=== PATIENT | male | born 1945 | race Caucasian/White ===

== ENCOUNTER → 2017-08-26 16:03 | Outpatient (CLI) | payer MEDICARE, OTHER, SELFPAY ==
[2017-08-26 19:25] LABS: Prostate Specific Antigen 0.747 ng/mL (0.10-4.00)
== END ==
PROVIDERS: PCP Family Medicine; Visit Provider Radiology Radiation Oncology
DX: Z85.46 Personal history of malignant neoplasm of prostate (principal)
CPT/HCPCS: 36415; 84153

== ENCOUNTER → 2017-11-27 12:56 | Outpatient (CLI) | payer MEDICARE, OTHER, SELFPAY ==
[2017-11-27 14:59] LABS: Prostate Specific Antigen 0.932 ng/mL (0.10-4.00)
== END ==
PROVIDERS: Family Provider Family Medicine; PCP Family Medicine; Visit Provider Radiology Radiation Oncology
DX: Z85.46 Personal history of malignant neoplasm of prostate (principal)
CPT/HCPCS: 36415; 84153

== ENCOUNTER → 2018-02-10 08:48 | Outpatient (CLI) | payer MEDICARE, OTHER, SELFPAY ==
[2018-02-10 14:12] LABS: Prostate Specific Antigen 0.841 ng/mL (0.10-4.00)
== END ==
PROVIDERS: Family Provider Family Medicine; PCP Family Medicine; Visit Provider Radiology Radiation Oncology
DX: Z85.46 Personal history of malignant neoplasm of prostate (principal)
CPT/HCPCS: 36415; 84153

== ENCOUNTER → 2018-06-25 12:40 | Outpatient (CLI) | payer MEDICARE, OTHER, SELFPAY ==
[2018-06-25 13:17] LABS: Add Manual Diff / Slide Review NO; Basophils Absolute Auto 100 /uL (0-100); Eosinophils Absolute Auto 300 /uL (0-450); Eosinophils Percent Auto 5.4 % (2-4); Hematocrit 40.4 % (41-53); Hemoglobin 13.8 g/dL (13.5-17.5); Lymphocytes Absolute Auto 1600 /uL (1100-4500); Lymphocytes Percent Auto 30.9 % (25-40); Mean Corpuscular HGB Conc 34.2 % (30-36); Mean Corpuscular Hemoglobin 31.6 PG (26-34); Mean Corpuscular Volume 92.6 fL (80-100); Monocytes Absolute Auto 400 /uL (0-900); Monocytes Percent Auto 7.3 % (3-14); Neutrophils Absolute Auto 2900 /uL (1500-7000); Neutrophils Percent Auto 55.4 % (50-75); Platelet Count 206 X10^3/uL (150-400); Red Blood Cell Count 4.36 X10^6/uL (4.5-5.9); Red Cell Distribution Width 13.5 % (11.6-14.8); White Blood Cell Count 5.2 X10^3/uL (4.5-11.0)
[2018-06-25 14:04] LABS: Alanine Aminotransferase 19 IU/L (21-72); Albumin 4.1 g/dL (3.5-5.0); Albumin Globulin Ratio 1.5 (1.0-2.8); Alkaline Phosphatase 51 U/L (38-126); Aspartate Aminotransferase 24 IU/L (17-59); BUN Creatinine Ratio 28.9 (6-22); Bilirubin Total 0.4 mg/dL (0.2-1.3); Blood Urea Nitrogen 26 mg/dL (9-20); Calcium 9.3 mg/dL (8.4-10.2); Carbon Dioxide 27 mmol/L (22-32); Chloride 106 mmol/L (98-107); Estimated Glomerular Filt Rate > 60.0 mL/min (>60); Globulin 2.7 g/dL (1.7-4.1); Glucose 85 mg/dL (80-110); HEMOLYSIS < 15 (0-50); Potassium 4.1 mmol/L (3.4-5.1); Sodium 141 mmol/L (137-145); Total Protein 6.8 g/dL (6.3-8.2)
[2018-06-25 14:35] LABS: Prostate Specific Antigen 1.06 ng/mL (0.10-4.00)
== END ==
PROVIDERS: PCP Family Medicine; Visit Provider Internal Medicine Hematology & Oncology
DX: R97.21 Rising PSA following treatment for malignant neoplasm of prostate (principal)
CPT/HCPCS: 36415; 80053; 84153; 85025

== ENCOUNTER → 2018-07-28 12:28 | Outpatient (CLI) | payer MEDICARE, OTHER, SELFPAY | PROVIDERS: PCP Family Medicine; Visit Provider Internal Medicine Hematology & Oncology | DX: R97.21 Rising PSA following treatment for malignant neoplasm of prostate (principal) | CPT/HCPCS: 77080; 77081 ==

== ENCOUNTER → 2018-08-12 08:37 | Outpatient (CLI) | payer MEDICARE, OTHER, SELFPAY ==
[2018-08-12 10:47] LABS: Prostate Specific Antigen 1.15 ng/mL (0.10-4.00)
== END ==
PROVIDERS: PCP Family Medicine; Visit Provider Internal Medicine Hematology & Oncology
DX: R97.21 Rising PSA following treatment for malignant neoplasm of prostate (principal)
CPT/HCPCS: 36415; 84153

== ENCOUNTER → 2018-12-10 16:37 | Outpatient (CLI) | payer MEDICARE, OTHER, SELFPAY | PROVIDERS: PCP Family Medicine | DX: Z23 Encounter for immunization (principal) | CPT/HCPCS: 90471; 90662 ==

== ENCOUNTER → 2019-02-09 07:46 | Outpatient (CLI) | payer MEDICARE, OTHER, SELFPAY ==
[2019-02-09 08:39] LABS: Alanine Aminotransferase 14 IU/L (<50); Albumin Globulin Ratio 1.5 (1.0-2.8); Alkaline Phosphatase 61 U/L (38-126); Aspartate Aminotransferase 23 IU/L (17-59); BUN Creatinine Ratio 19.1 (6-22); Bilirubin Total 0.7 mg/dL (0.2-1.3); Blood Urea Nitrogen 21 mg/dL (9-20); Calcium 9.3 mg/dL (8.4-10.2); Carbon Dioxide 28 mmol/L (22-32); Chloride 106 mmol/L (98-107); Estimated Glomerular Filt Rate > 60.0 mL/min (>60); Globulin 2.7 g/dL (1.7-4.1); Glucose 73 mg/dL (80-110); HEMOLYSIS < 15 (0-50); Potassium 3.9 mmol/L (3.4-5.1); Sodium 141 mmol/L (137-145); Total Protein 6.7 g/dL (6.3-8.2)
[2019-02-09 08:43] LABS: HEMOLYSIS < 15 (0-50); Iron 59 ug/dL (49-181)
[2019-02-09 08:54] LABS: Percent Iron Saturation 23 % (20-50); Total Iron Binding Capacity 260 ug/dL (261-462); Transferrin 202 mg/dL (206-381)
[2019-02-09 09:13] LABS: Ferritin 90.8 ng/mL (17.9-464)
[2019-02-09 09:14] LABS: TSH w/ Reflex to FT4 5.44 uIU/mL (0.47-4.68)
[2019-02-09 09:26] LABS: Vitamin B12 278 pg/mL (239-931)
== END ==
PROVIDERS: PCP Family Medicine; Visit Provider Internal Medicine Hematology & Oncology
DX: R97.21 Rising PSA following treatment for malignant neoplasm of prostate (principal)
CPT/HCPCS: 36415; 80053; 82607; 82728; 83540; 83550; 84439; 84443

== ENCOUNTER → 2020-03-09 08:59 | Outpatient (CLI) | payer MEDICARE, OTHER, SELFPAY ==
[2020-03-09] MEDS: COVID-19 VACC(MODERNA-1)/PF 100 MCG/0.5 ML VIAL IM (09:09)
== END ==
PROVIDERS: PCP Family Medicine; Visit Provider Internal Medicine
DX: Z23 Encounter for immunization (principal)
CPT/HCPCS: 0011A; 91301

== ENCOUNTER → 2020-04-05 12:13 | Outpatient (CLI) | payer MEDICARE, OTHER, SELFPAY ==
[2020-04-05] MEDS: COVID-19 VACC #2, MRNA(MOD) 100 MCG/0.5 ML VIAL IM (12:21)
== END ==
PROVIDERS: PCP Family Medicine; Visit Provider Internal Medicine
DX: Z23 Encounter for immunization (principal)
CPT/HCPCS: 0012A; 91301

== ENCOUNTER → 2021-04-17 08:54 | Outpatient (CLI) | payer MEDICARE, OTHER, SELFPAY | PROVIDERS: PCP Family Medicine; Referring Provider Urology; Visit Provider Family Medicine | DX: N30.41 Irradiation cystitis with hematuria (principal); Z85.46 Personal history of malignant neoplasm of prostate; Z92.3 Personal history of irradiation; Z79.818 Long term (current) use of other agents affecting estrogen receptors and estrogen levels; Z79.52 Long term (current) use of systemic steroids | CPT/HCPCS: 99204; 99212 ==

== ENCOUNTER → 2022-10-28 | Outpatient (CLI) | payer MEDICARE, OTHER, SELFPAY ==
--- NOTE | 2022-10-28 13:36 | DI.ECHO.S_ITS ---
[facility]---------+ [facility] +---------+ : : [address] : [address] [place] : : : : [id number] : : : : Phone: [phone]+ Echocardiogram Report + + :Name: ULISES FRAIRE Study Date: 10/28/2022 Height: 70 in : :[facility] ReadingLocation: Weight: 143 lb : : Gender: Male BSA: 1.8 m2 : :: 1945 Age: 77 yrs BP: 109/76 mmHg: :Reason For Study: DYSPNEA : :Ordering Physician: JEANNIE, : :HIMA Performed By: Maria Guadalupe Anderson : :Referring: HIMA TREVIÑO : + + Interpretation Summary 1) Normal left ventricular thickness and size with low normal systolic function (EF about 50%). 2) Normal right ventricular size and function. 3) No significant valvular abnormalities. 4) The aortic root is moderately dilated at 4.5cm. 5) No prior Echo available for comparison. Procedure: A two-dimensional transthoracic echocardiogram with color flow and Doppler was performed. The study quality was technically adequate. There is no prior echocardiogram noted for this patient. The patient was in sinus rhythm with heart rates between 51-75 bpm during the exam. Left Ventricle: The left ventricle is normal in size and wall thickness. Left ventricular global longitudinal strain average is -18.7%. Left ventricular ejection fraction is estimated to be 50 +/- 5%. There are no focal wall motion abnormalities. Right Ventricle: The right ventricle is normal in size and function. Atria: The left atrial size is normal. Right atrial size is normal. The atrial septum is aneurysmal. There is no Doppler evidence for an interatrial shunt. Mitral Valve: The mitral valve is normal in structure and function. There is trace mitral regurgitation. Aortic Valve: The aortic valve is trileaflet. The aortic valve opens well. There is no aortic valve stenosis. There is trace aortic regurgitation. Tricuspid Valve: The tricuspid valve is normal in structure and function. The right ventricular systolic pressure is estimated to be at least 25 mmHg based on an estimated right atrial pressure of 3 mm Hg. There is a trace or physiologic amount of tricuspid regurgitation. Pulmonic Valve: The pulmonic valve is not well seen, but is grossly normal. There is trace pulmonic regurgitation. Great Vessels: The aortic root is moderately dilated. The ascending aorta is mildly enlarged. The IVC is of normal diameter and collapses greater than 50% with a sniff. This suggests a low right atrial pressure of 3 mm Hg. Pericardium/ Pleura There is no pericardial effusion. There is no pleural effusion. MMode/2D Measurements & Calculations LVIDd: 5.0 cm LVOT diam: 2.2 cm LVIDs: 3.7 cm Ao root diam: 4.5 cm FS: 25.2 % asc Aorta Diam: 4.1 cm EPSS: 0.84 cm Ao Arch Diam (Prox Trans): 3.0 cm IVSd: 0.76 cm LVPWd: 0.77 cm LV . diameter/BSA (cm/m^2): 2.8 LV sys. diameter/BSA (cm/m^2): 2.1 LA A2 area: 18.1 cm2 RA long axis: 6.0 cm LA A4 area: 14.5 cm2 RA area: 15.2 cm2 LA length (vol): 4.5 cm RA vol: 32.7 ml LA vol: 49.6 ml RA : 18.1 ml/m2 LA vol index: 27.4 ml/m2 IVC diam: 1.3 cm RVD1 (basal): 4.0 cm RVD2 (mid): 3.1 cm TAPSE: 1.9 cm Doppler Measurements & Calculations Ao V2 max: 112.7 cm/sec LVOT Max Lane: 88.0 cm/sec Ao V2 mean: 80.3 cm/sec LV V1 max P.1 mmHg Ao max P.1 mmHg LV V1 VTI: 21.8 cm Ao mean P.9 mmHg AIDA(I,D): 3.2 cm2 Ao V2 VTI: 25.7 cm AIDA(V,D): 2.9 cm2 sev ratio: 0.85 AIDA indexed to BSA (cm^2/m^2): 1.[address]: 39.3 cm/sec TR max lane: 230.0 cm/sec MV A max lane: 72.5 cm/sec TR max P.2 mmHg MV E/A: 0.54 PA pr(Accel): 34.5 mmHg Med Peak E' Lane: 4.5 cm/sec E/E' med: 8.[address]: 4.7 cm/sec E/E' lat: 8.3 E/e' average: 8.5 MV dec time: 0.49 sec SV(LVOT): 81.6 ml Reading Physician:09:23 AM
--- NOTE | 2022-10-30 09:59 | DI.NM.S_ITS ---
DATE OF SERVICE: 10/28/2022 PROCEDURE: Exercise treadmill stress test without imaging. ORDERING PROVIDER: Juan Treviño MD INDICATIONS: The patient is a 77-year-old male with a history of exertional palpitations, lightheadedness, and left arm discomfort with a remote history of chest pain. FINDINGS: 1. The patient was able to exercise for 9 minutes and 30 seconds on a standard Suhail protocol, suggesting exceptional exercise capacity with an KELLY of -58%, achieving 10.2 METS. 2. He had a normal heart rate and blood pressure response to exercise, achieving a maximum heart rate of 176 bpm (123% of his predicted maximum). O2 saturation was 94% at peak exercise. 3. The patient had no chest discomfort or other anginal symptoms. 4. His resting ECG showed sinus rhythm with left axis deviation but normal ST segments. With stress, there were no significant ST-segment shifts but frequent PVCs, briefly in a bigeminal pattern and rarely in couplets, but no other complex ventricular ectopy. IMPRESSION: 1. Normal exercise treadmill stress test for ischemia. 2. Exceptional exercise capacity without angina. 3. Moderate ventricular ectopy with exercise with frequent PVCs, briefly in a bigeminal pattern and rarely in couplets but no other complex ventricular ectopy Alexander Duran - YENI/xin/CHARLOTTE doc#: [id number]/job#: [id number] dd: 10/28/2022 17:38:00 dt: 10/29/2022 00:52:00 DICTATING MD/COPIES TO: Shaheen Ching MD; Juan Treviño MD COPIES MNE: SHERRON;
== END ==
PROVIDERS: PCP Family Medicine; Referring Provider Internal Medicine Cardiovascular Disease; Visit Provider Internal Medicine Cardiovascular Disease
DX: I77.810 Thoracic aortic ectasia (principal); I49.3 Ventricular premature depolarization; R06.09 Other forms of dyspnea; R53.83 Other fatigue
CPT/HCPCS: 93017; 93306; 93356

== ENCOUNTER 2023-09-08 21:47 | Inpatient (IN) | payer MEDICARE, OTHER, SELFPAY ==
[2023-09-08] VITALS (7 sets, daily range): BP systolic 104–125; BP diastolic 57–70; PULSE 82–101; RESP 13–17; TEMP 37.7; O2SAT 90–99; BMI 22.9
--- NOTE | 2023-09-08 22:04 | DI.RAD.S_ITS ---
PROCEDURE: XR CHEST 1V INDICATIONS: suspected sepsis TECHNIQUE: One view of the chest was acquired. COMPARISON: None. FINDINGS: Surgical changes and devices: Left chest wall port catheter with distal tip projecting over the lower SVC. Lungs and pleura: No pneumothorax. Left base mild opacity. Blunting of left costophrenic angle may represent trace pleural effusion. Mediastinum: Mediastinal contours appear normal. Heart size is normal. Bones and chest wall: No suspicious bony lesions. Overlying soft tissues appear unremarkable. IMPRESSION: Mild left base opacity may represent atelectasis, aspiration or pneumonia in the appropriate clinical setting. Blunting of the left left costophrenic angle may represent trace pleural effusion. Approved by: Awa Saleem M.D.,Ph.D. on 09/08/2023 at 22:46
[2023-09-08] MEDS: SODIUM CHLORIDE 0.9% 1,000 ML 1000 ML IV (22:16)
[2023-09-08] MEDS: HYDROMORPHONE 0.5 MG INJ IV ×2 (22:21→23:31)
--- NOTE | 2023-09-08 22:43 | ED_ITS ---
HPI - Altered Mental Status General Chief Complaint: Altered Mental Status Stated Complaint: poss uti/has cathetar Time Seen by Provider: 09/08/23 22:27 Source: patient and family Mode of arrival: Wheelchair History of Present Illness HPI narrative: 78-year-old male with history of prostate cancer first diagnosed 2010, initial seeds/XRT, recurrence 2015, chemotherapy through 2019, more recently had radionuclide therapy via [facility] in [place] this June 2023, but unfortunately PSA was rising despite MILLER treatment, followed by oncologist Dr. Andrea, with consideration for experimental K2 treatment, but because of low platelets he was not deemed to be a K2 trial candidate, most recently 08/27/23 he had trial of testosterone, but the next day became hypotensive, airlifted 08/28/[address] from [place] to [facility], felt to be dehydrated, found to have urinary retention, new Fernandez urinary catheter placed prior to discharge home, due to see [facility] urologist Dr. Fu on 09/15/2023. Family notes patient to have increasing fatigue recent days, generalized weakness, yesterday and today requiring assistance with ambulation, usually can ambulate independently, concern for possible urinary tract infection. No injury or trauma or falls known. No gross hematuria noted in the Fernandez tubing/bag, but some cloudy urine has been present. No nausea or vomiting, no black or red stools. He denies abdominal pain, flank pain, chest pain, shortness of breath. He denies headache, neck pain, photophobia. No drug or alcohol use suspected. 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 He lives on [place] with . Related Data Home Medications Medication Instructions Recorded Confirmed abiraterone 250 mg tablet 500 mg PO DAILY 03/27/21 04/11/21 acetaminophen 325 mg tablet 650 mg PO Q6H PRN 03/27/21 04/11/21 cetirizine 10 mg tablet (Zyrtec) 10 mg PO DAILY PRN 03/27/21 04/11/21 diphenhydramine HCl 25 mg tablet 12.5 mg PO BEDTIME 03/27/21 04/11/21 (Benadryl Allergy) leuprolide [Lupron Depot] IM [id number] 03/27/21 04/11/21 naproxen sodium 220 mg capsule 220 mg PO BID PRN 03/27/21 04/11/21 prednisone 5 mg tablet 5 mg PO DAILY 03/27/21 04/11/21 Previous Rx's Medication Instructions Recorded trospium 20 mg tablet 20 mg PO BID #60 tabs 05/01/21 Allergies Allergy/AdvReac Type Severity Reaction Status Date / Time No Known Drug Allergies Allergy Verified 04/11/21 15:09 Review of Systems Review of Systems Narrative: per HPI Patient History Medical History (Updated 09/09/23 @ 00:07 by Myron Vazquez MD) Androgen deprivation therapy History of radiation therapy Frequency of micturition Urinary urgency Nocturia Lower urinary tract symptoms Hx of closed dislocation of shoulder Hx of prostatic malignancy Hx of renal calculi Surgical History Hx of bilateral inguinal hernia repair Hx of prostate biopsy Hx of circumcision Hx of prostatectomy Family History Mother Cancer Sister Cancer Social History marital status: household members: spouse Smoking Status: Never smoker alcohol intake: former caffeine: Yes Type(s) of exercise: bicycling frequency: 1-2 times per week duration: 45-60 minutes/day Smoking Status: Never smoker Exam Narrative Exam Narrative: GENERAL: Well-developed patient, in mild distress. HEAD: Atraumatic. Normocephalic. EYES: Pupils equal round and reactive. Extraocular motions intact. No scleral icterus. No injection or drainage. ENT: Nose without bleeding, purulent drainage. Throat without erythema, tonsillar hypertrophy or exudate. Airway patent. NECK: Trachea midline. Non tender CARDIOVASCULAR: Regular rate and rhythm without murmurs, gallops, or rubs. RESPIRATORY: Clear to auscultation. Breath sounds equal bilaterally. No wheezes, rales, or rhonchi. Left chest Port-A-Cath, site appears normal, without redness or swelling or discharge GASTROINTESTINAL: Abdomen soft, non-tender, nondistended. : Fernandez catheter in place, cloudy urine in tubing, no pink/red color, somewhat cloudy appearing urine in tubing EXTREMITIES: 1+ edema bilateral above ankles, well-perfused feet/toes. BACK: Nontender without deformity or crepitance. No flank tenderness. NEURO: AOx3. SKIN: No rash or erythema of visible areas Initial Vital Signs Initial Vital Signs: Vital Signs Pulse Rate 97 H 09/08/23 21:54 Blood Pressure 117/70 09/08/23 21:54 Pulse Oximetry 91 09/08/23 21:54 Oxygen Delivery Method Room Air 09/08/23 21:54 Course Orders Ordered: ED Orders 09/08/23 22:04 XR chest 1V Stat EKG-12 Lead Stat RT Consult Eval and Treat NOW 09/08/23 22:40 Complete Blood Count AUTO DIFF Stat Comprehensive Metabolic Panel Stat Lactate (Lactic Acid) Stat Lipase Stat NT-proBNP (BNP-Adult 18+) Stat PTT Partial Thromboplastin Brock Stat Pathologist Review (for CBC) Stat Procalcitonin Stat Prothrombin Time INR Stat 09/08/23 23:00 Ictotest Urine Stat Urinalysis and Microscopic Stat Urine Culture Stat 09/08/23 23:16 Blood Culture Stat Platelet Irradiated Stat Platelets Stat Type and Screen Stat transfuse [Packed Cells Irradiated] Stat transfuse [Packed Cells] Stat Ondansetron HCl (Ondansetron 4 Mg/2 Ml Inj) 4 mg IV NOW PRN PRN Reason: Nausea And Vomiting Ondansetron HCl (Ondansetron 4 Mg Odt) 4 mg SL NOW PRN PRN Reason: Nausea And Vomiting Discontinued Medications Hydromorphone HCl (Hydromorphone 0.5 Mg Inj) 0.5 mg IV NOW ONE Stop: 09/08/23 22:11 Last Admin: 09/08/23 22:21 Dose: 0.5 mg Documented By: ANISH Hydromorphone HCl (Hydromorphone 0.5 Mg Inj) 0.5 mg IV NOW ONE Stop: 09/08/23 23:22 Last Admin: 09/08/23 23:31 Dose: 0.5 mg Documented By: DWAYNE Sodium Chloride (Normal Saline 0.9%) 1,000 mls @ 1,000 mls/hr IV BOLUS ONE Stop: 09/08/23 23:03 Last Infusion: 09/09/23 00:19 Dose: Infused Documented By: Admin: 09/08/23 22:16 Dose: 1,000 mls/hr Documented By: ANISH Ceftriaxone Sodium 1,000 mg/ (Sodium Chloride) 100 mls @ 200 mls/hr IV NOW ONE Stop: 09/08/23 22:28 Last Infusion: 09/09/23 00:19 Dose: Infused Documented By: Admin: 09/08/23 23:31 Dose: 200 mls/hr Documented By: DWAYNE Vital Signs Vital signs: Vital Signs - 8 hr 09/08/23 21:54 09/08/23 21:54 09/08/23 22:00 Temperature Pulse Rate 97 H 92 H Respiratory Rate 17 Blood Pressure 117/70 Pulse Oximetry 91 93 Oxygen Delivery Method Room Air Nasal Cannula Oxygen Flow Rate 2 09/08/23 22:00 09/08/23 22:04 09/08/23 22:20 Temperature 99.8 F H Pulse Rate 101 H Respiratory Rate 14 Blood Pressure 104/57 L 104/57 L 113/63 Pulse Oximetry 90 L Oxygen Delivery Method Room Air Oxygen Flow Rate 09/08/23 22:20 09/08/23 22:30 09/08/23 22:30 Temperature Pulse Rate 91 H 91 H Respiratory Rate 17 15 Blood Pressure 114/59 L Pulse Oximetry 97 98 Oxygen Delivery Method Nasal Cannula Oxygen Flow Rate 2 09/08/23 23:00 09/08/23 23:00 09/08/23 23:30 Temperature Pulse Rate 85 Respiratory Rate 14 Blood Pressure 109/62 125/62 Pulse Oximetry 98 Oxygen Delivery Method Nasal Cannula Oxygen Flow Rate 2 09/08/23 23:30 09/09/23 00:00 09/09/23 00:00 Temperature Pulse Rate 82 81 Respiratory Rate 13 12 Blood Pressure 112/68 Pulse Oximetry 99 94 Oxygen Delivery Method Nasal Cannula Nasal Cannula Oxygen Flow Rate 2 2 MDM - Altered Mental Status Lab Data Attestation: I reviewed the patient's lab results. 09/08/23 22:40 09/08/23 22:40 Labs: Lab Results 09/08/23 09/08/23 09/08/23 Range/Units 22:40 23:00 23:16 WBC 2.6 L (4.5-11.0) X10^3/uL RBC 1.66 L (4.5-5.9) X10^6/uL Hgb 5.4 L* (13.5-17.5) g/dL Hct 15.5 L* (41-53) % MCV 93.3 (80-100) fL MCH 32.6 (26-34) PG MCHC 34.9 (30-36) % RDW 16.6 H (11.6-14.8) % Plt Count 11 L* (150-400) X10^3/uL Neut % (Auto) Not Reportable Lymph % (Auto) Not Reportable [place] % (Auto) Not Reportable Eos % (Auto) Not Reportable Baso % (Auto) Not Reportable Lymph # (Auto) Not Reportable [place] # (Auto) Not Reportable Baso # (Auto) Not Reportable Total Counted 100 Seg Neutrophils % 71.0 H (38-70) % Band Neutrophils % 5.0 (3-7) % Lymphocytes % (Manual) 16.0 L (25-45) % Monocytes % (Manual) 6.0 (2-11) % Eosinophils % (Manual) 1.0 L (2-4) % Metamyelocytes % 1.0 H (-0) % Neutrophils # (Manual) 1976 L (6760-2886) /uL Nucleated RBCs 4 H ( - 0) #/Diff Platelet Estimate Decreased on smear RBC Morphology See below Polychromasia 1+ H Anisocytosis 1+ H PT 15.4 H (9.4-12.5) SECONDS INR 1.3 (0.9-1.3) APTT 33 (25.1-36.5) SECONDS Sodium 130 L (137-145) mmol/L Potassium 4.4 (3.4-5.1) mmol/L Chloride 100 (98-107) mmol/L Carbon Dioxide 29 (22-32) mmol/L BUN 21 H (9-20) mg/dL Creatinine 1.10 (0.66-1.25) mg/dL Estimated GFR > 60 (>60) mL/min BUN/Creatinine Ratio 19.1 (6-22) Glucose 125 H (80-110) mg/dL Lactate 1.8 (0.7-2.1) mmol/L Calcium 8.2 L (8.4-10.2) mg/dL Total Bilirubin 0.8 (0.2-1.3) mg/dL AST 66 H (17-59) IU/L ALT 16 (<50) IU/L Alkaline Phosphatase 68 (38-126) U/L NT-Pro-B Natriuret Pep 696 H (<450) pg/mL Total Protein 5.5 L (6.3-8.2) g/dL Albumin 3.1 L (3.5-5.0) g/dL Globulin 2.4 (1.7-4.1) g/dL Albumin/Globulin Ratio 1.3 (1.0-2.8) Lipase 37 (23-300) U/L Procalcitonin 0.395 (<0.5) ng/mL Urine Color Red Urine Appearance Cloudy Urine pH 8.0 (4.5-8.0) Ur Specific [place] 1.015 (1.000-1.035) Urine Protein 3+ H (Negative) Urine Glucose (UA) Negative (Negative) g/dL Urine Ketones Negative (NEGATIVE) Urine Occult Blood 3+ H (Negative) Urine Nitrate Positive H (Negative) Urine Bilirubin 1+ H (NEGATIVE) Ur Bilirubin Confirm Negative (Negative) Urine Urobilinogen 1.0 (0.2) E.U./dL Ur Leukocyte Esterase 2+ H (NEGATIVE) Urine RBC >100/hpf H (0-5/HPF) Urine WBC >100/hpf H (0-5/HPF) Ur Squamous Epith Cells None seen (0-5/HPF) Urine Bacteria Many (>30) H (None) Ur Culture Indicated? Specimen cultured Vol Urine Centrifuged 10ml (spun) Blood Type A Positive Antibody Screen Negative Crossmatch See Detail ECG Data Attestation: I personally reviewed and interpreted this ECG as follows: Interpretation: Normal sinus rhythm with rate 84, no obvious ST segment elevation or depression changes. Wandering baseline precordial leads. MA 168, QRS 74, QTC 441. MDM Narrative Medical decision making narrative: 78-year-old male with history of complex prostate cancer treatment, most recent radionuclide therapy unsuccessful, with increasing PSA, hypotension after testosterone trial 08/27/2023, prompted airlift transfer [place] to [facility], discharge with urinary catheter for urinary retention, awaiting urology follow up. Generalized weakness last few days, needing assistance last couple of days with ambulation, low platelets noted in the past, no signs and symptoms of active bleeding, no falls or trauma known. Possible urosepsis versus other. Labs sent, urinalysis requested, blood cultures requested, IV ceftriaxone after blood and urine cultures. Await lab test results and urinalysis results. Hemoglobin 5.4 noted, platelets [id number]. Type cross transfuse irradiated 2 units packed cells ordered. Transfuse irradiated 2 units platelets ordered. Urinalysis confirms infection with many bacteria inflammatory cells and red cells, urine culture pending. Blood culture sent prior, IV ceftriaxone given empirically prior for suspected urinary tract infection. Case discussed with hospitalist Dr. Arevalo, accepts patient for admission to inpatient Critical Care Time Critical Care Time Total Critical Care Time: 35 Attestation: The high probability of a clinically significant, sudden or life threatening deterioration of the [cardiopulmonary, hematologic,] system(s) required my full and direct attention, intervention and personal management. The aggregate critical care time was [35] minutes. This time is in addition to time spent performing reported procedures but includes the following: [x] Data Review and interpretation [x] Patient assessment and monitoring of vital signs [x] Documentation [x] Medication orders and management Discharge Plan Departure Patient Disposition: Admitted as Observation Clinical Impression: Generalized weakness, Anemia, Thrombocytopenia, Urinary tract infection Admit Date/Time: 09/09/23 00:09 Admit Provider: Lázaro Arevalo
[2023-09-08 22:56] LABS: Mean Corpuscular HGB Conc 34.9 % (30-36); Mean Corpuscular Hemoglobin 32.6 PG (26-34); Mean Corpuscular Volume 93.3 fL (80-100); Red Blood Cell Count 1.66 X10^6/uL (4.5-5.9); Red Cell Distribution Width 16.6 % (11.6-14.8); White Blood Cell Count 2.6 X10^3/uL (4.5-11.0)
[2023-09-08 22:57] LABS: INR 1.3 (0.9-1.3); Prothrombin Time 15.4 SECONDS (9.4-12.5)
[2023-09-08 23:00] LABS: Add Manual Diff / Slide Review YES; PTT Partial Thromboplastin Tim 33 SECONDS (25.1-36.5)
[2023-09-08 23:02] LABS: Lactate (Lactic Acid) 1.8 mmol/L (0.7-2.1)
[2023-09-08 23:03] LABS: Alanine Aminotransferase 16 IU/L (<50); Albumin 3.1 g/dL (3.5-5.0); Albumin Globulin Ratio 1.3 (1.0-2.8); Alkaline Phosphatase 68 U/L (38-126); Aspartate Aminotransferase 66 IU/L (17-59); BUN Creatinine Ratio 19.1 (6-22); Bilirubin Total 0.8 mg/dL (0.2-1.3); Blood Urea Nitrogen 21 mg/dL (9-20); Calcium 8.2 mg/dL (8.4-10.2); Carbon Dioxide 29 mmol/L (22-32); Chloride 100 mmol/L (98-107); Estimated Glomerular Filt Rate > 60 mL/min (>60); Globulin 2.4 g/dL (1.7-4.1); Glucose 125 mg/dL (80-110); HEMOLYSIS < 15 (0-50); Hemoglobin 5.4 g/dL (13.5-17.5); Lipase 37 U/L (23-300); Potassium 4.4 mmol/L (3.4-5.1); Sodium 130 mmol/L (137-145); Total Protein 5.5 g/dL (6.3-8.2)
[2023-09-08 23:04] LABS: Hematocrit 15.5 % (41-53); Platelet Count 11 X10^3/uL (150-400)
[2023-09-08 23:13] LABS: NT-proBNP (BNP-Adult 18+) 696 pg/mL (<450)
[2023-09-08 23:15] LABS: Appearance Urine UA CLOUDY; Bilirubin Urine UA 1+ (NEGATIVE); Color Urine UA RED; Glucose Urine UA NEGATIVE (Negative); Ketones Urine UA NEGATIVE (NEGATIVE); Leukocyte Esterase Urine UA 2+ (NEGATIVE); Nitrite Urine UA POSITIVE (Negative); Occult Blood Urine UA 3+ (Negative); Protein Urine UA 3+ (Negative); Specific Gravity Urine UA 1.015 (1.000-1.035)
[2023-09-08 23:20] LABS: Procalcitonin 0.395 ng/mL (<0.5)
[2023-09-08 23:24] LABS: Neutrophils Absolute Manual 1976 /uL (3000-5900); Nucleated Red Blood Cells 4 #/Diff; Total Cells Counted 100
[2023-09-08 23:25] LABS: Anisocytosis 1+; Platelet Estimate Decreased on smear; Polychromasia 1+
[2023-09-08] MEDS: cefTRIAXone 1,000 MG in SODIUM CHLORIDE 0.9% 100 ML 200 MG IV (23:31)
--- NOTE | 2023-09-08 23:32 | EKG_ITS ---
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
[2023-09-08 23:39] LABS: Bacteria Urine Many (>30); RBC Urine >100/HPF (0-5/HPF); Urine Volume 10mL (spun); WBC Urine >100/HPF (0-5/HPF)
[2023-09-08 23:40] LABS: Culture Indicated Urine Specimen Cultured; Squamous Epithelial Cell Urine None Seen (0-5/HPF)
[2023-09-08 23:48] LABS: Ictotest Urine Negative (Negative)
[2023-09-09] VITALS (24 sets, daily range): BP systolic 100–122; BP diastolic 60–78; PULSE 68–101; RESP 12–18; TEMP 36.6–38.3; O2SAT 94–100; BMI 21.6
--- NOTE | 2023-09-09 01:11 | EKG_ITS ---
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
--- NOTE | 2023-09-09 02:03 | DI.ECHO.S_ITS ---
[facility] : : [address] : [place] : : [id number] : : Phone: [phone] Echocardiogram Report + + :Name: ULISES FRAIRE Study Date: 09/09/2023 Height: 69 in : :Hospital ReadingLocation: Weight: 146 lb : : Gender: Male BSA: 1.8 m2 : :: 1945 Age: 78 yrs BP: 108/65 mmHg: :Reason For Study: CHEST PAIN : :Ordering Physician: RUDOLPH, : :LADARIUS Hernández MD Performed By: Maria Guadalupe Anderson : :Referring: LADARIUS GALDAMEZ MD : + + Interpretation Summary 1) Normal left ventricular thickness and size with low normal systolic function (EF 50-55%). 2) Normal right ventricular size and function. 3) No significant valvular abnormalities. 4) The aortic root is moderately dilated at 4.6cm. 5) There is a small left-sided pleural effusion. 6) Compared to the echo done 10/28/2022, left sided pleural effusion is present on this study. Procedure: A two-dimensional transthoracic echocardiogram with color flow and Doppler was performed. The study quality was technically adequate. Comparison is made with the echocardiogram of 10/28/2022. The heart rate ranged between 74-80 bpm during the study. Left Ventricle: The left ventricle is normal in size and wall thickness. The ejection fraction is estimated to be 50-55%. There are no focal wall motion abnormalities. Diastolic parameters suggest a relaxation abnormality of the left ventricle, consistent with probable normal filling pressures. Right Ventricle: The right ventricle is normal in size and function. Atria: The left atrial size is normal. Right atrial size is normal. There is no Doppler evidence for an interatrial shunt. Mitral Valve: The mitral valve is normal in structure and function. There is trace mitral regurgitation. Aortic Valve: The aortic valve is trileaflet. The aortic valve opens well. There is no aortic valve stenosis. No aortic regurgitation is present. Tricuspid Valve: The tricuspid valve is normal in structure and function. There is trace tricuspid regurgitation. Pulmonary artery pressures cannot be estimated because of the lack of a measurable TR jet velocity. Pulmonic Valve: The pulmonic valve is not well seen, but is grossly normal. There is trace pulmonic regurgitation. Great Vessels: The aortic root is moderately dilated. The ascending aorta is moderately enlarged. The IVC is of normal diameter and collapses greater than 50% with a sniff. This suggests a low right atrial pressure of 3 mm Hg. Pericardium/ Pleura There is no pericardial effusion. There is a small left- sided pleural effusion. MMode/2D Measurements & Calculations LVIDd: 5.3 cm LVOT diam: 2.2 cm LVIDs: 3.6 cm Ao root diam: 4.6 cm FS: 32.9 % asc Aorta Diam: 4.5 cm IVSd: 1.0 cm Ao Arch Diam (Prox Trans): 3.2 cm LVPWd: 0.80 cm LV . diameter/BSA (cm/m^2): 3.0 LV sys. diameter/BSA (cm/m^2): 2.0 LA A2 area: 20.0 cm2 RA long axis: 6.0 cm LA A4 area: 15.1 cm2 RA area: 16.2 cm2 LA length (vol): 4.5 cm RA vol: 37.5 ml LA vol: 57.1 ml RA : 20.8 ml/m2 LA vol index: 31.6 ml/m2 IVC diam: 1.4 cm RVD1 (basal): 3.9 cm TAPSE: 2.3 cm Doppler Measurements & Calculations Ao V2 max: 136.8 cm/sec LVOT Max Lane: 91.5 cm/sec Ao V2 mean: 98.6 cm/sec LV V1 max P.3 mmHg Ao max P.5 mmHg LV V1 VTI: 20.5 cm Ao mean P.3 mmHg AIDA(I,D): 3.0 cm2 Ao V2 VTI: 27.4 cm AIDA(V,D): 2.7 cm2 sev ratio: 0.75 AIDA indexed to BSA (cm^2/m^2): 1.[address]: 59.6 cm/sec PA V2 max: 119.4 cm/sec MV A max lane: 83.8 cm/sec PA V2 mean: 82.7 cm/sec MV E/A: 0.71 PA mean P.1 mmHg Med Peak E' Lane: 6.2 cm/sec PA pr(Accel): 39.6 mmHg E/E' med: 9.[address]: 12.4 cm/sec E/E' lat: 4.8 E/e' average: 7.2 MV dec time: 0.23 sec SV(LVOT): 81.3 ml Reading Physician:10:56 AM
--- NOTE | 2023-09-09 02:03 | PM.HP.1 ---
History of Present Illness History of Present Illness Date Patient Seen: 09/09/23 Time Patient Seen: 01:45 Chief complaint: poss uti/has cathetar Narrative: 78 years old male with a past medical history of prostate cancer diagnosed initially in 2010 status post radiation therapy/seed placement with recurrence in 2016 and radionuclide therapy in [facility] in [place] with the recurrence of prostate cancer noted by elevated PSA and was being considered for experimental K2 treatment and not given due to low platelet counts. Trial of testosterone was given on 08/27/2023 but the following day became hypotensive with significant urinary retention and had a Fernandez catheter placed prior to discharge home on 08/29/2023. He was due to see his urologist on 09/15/2023 but of late, family noted patient was increasingly fatigued with minimal exertion and activities of daily living and was requiring assistance even with ambulation. He usually was independent prior to this and eventually they brought him for concerns for possible urinary tract infection. The urine in the catheter itself is cloudy as noted in the emergency room. Denies any shortness of breath but did have an episode of chest pain mainly in the retrosternal region on arrival to the floor that has since resolved. He has a port in place on the left subclavian region. No recent history of falls or trauma. Denies any headache or double vision. Denies any abdominal pain. Does have constipation chronic with the last bowel movement 3 to 4 days ago. Initially in the ED noted to be tachycardic with soft blood pressures in the systolic of 104. WBC count was 2.6 with a hemoglobin of 5.4 and a platelet count of 11. Sodium 130 with a potassium 4.4, BUN of 21 and a creatinine 1.1. Patient denies any bleeding anywhere. INR is 1.3. Urine analysis is positive for greater than 100 WBCs and leukocyte esterase 2+ positive. Urine cultures were sent as well as of the blood cultures and patient was given a dose of IV Rocephin and admitted for further evaluation. 2 units of packed red blood cell irradiated and 2 units of platelet irradiated has been ordered but arrival is about 2 hours away. Initially advised transfer to a tertiary care center but per family's insistence, patient has been admitted for further evaluation [facility] Medical History (Updated 09/09/23 @ 00:07 by Myron Vazquez MD) Androgen deprivation therapy History of radiation therapy Frequency of micturition Urinary urgency Nocturia Lower urinary tract symptoms Hx of closed dislocation of shoulder Hx of prostatic malignancy Hx of renal calculi Surgical History Hx of bilateral inguinal hernia repair Hx of prostate biopsy Hx of circumcision Hx of prostatectomy Family History Mother Cancer Sister Cancer Social History marital status: household members: spouse Smoking Status: Never smoker alcohol intake: former caffeine: Yes Type(s) of exercise: bicycling frequency: 1-2 times per week duration: 45-60 minutes/day Meds Home Medications and Allergies Home Medications Medication Instructions Recorded Confirmed Type abiraterone 250 mg tablet 500 mg PO DAILY 03/27/21 04/11/21 History acetaminophen 325 mg tablet 650 mg PO Q6H PRN 03/27/21 04/11/21 History cetirizine 10 mg tablet (Zyrtec) 10 mg PO DAILY PRN 03/27/21 04/11/21 History diphenhydramine HCl 25 mg tablet 12.5 mg PO BEDTIME 03/27/21 04/11/21 History (Benadryl Allergy) leuprolide [Lupron Depot] IM [id number] 03/27/21 04/11/21 History naproxen sodium 220 mg capsule 220 mg PO BID PRN 03/27/21 04/11/21 History prednisone 5 mg tablet 5 mg PO DAILY 03/27/21 04/11/21 History trospium 20 mg tablet 20 mg PO BID #60 tabs 05/01/21 Rx Allergies Allergy/AdvReac Type Severity Reaction Status Date / Time No Known Drug Allergies Allergy Verified 04/11/21 15:09 Review of Systems Review of Systems Narrative: 12 point review of system is negative unless otherwise stated in the history of present illness Exam Vital Signs (past 8 hours): - 09/08/23 21:54 09/08/23 21:54 09/08/23 22:00 Temperature Pulse Rate 97 H 92 H Respiratory Rate 17 Blood Pressure 117/70 Pulse Oximetry 91 93 Oxygen Delivery Method Room Air Nasal Cannula Oxygen Flow Rate 2 Fraction of Inspired Oxygen 09/08/23 22:00 09/08/23 22:04 09/08/23 22:20 Temperature 99.8 F H Pulse Rate 101 H Respiratory Rate 14 Blood Pressure 104/57 L 104/57 L 113/63 Pulse Oximetry 90 L Oxygen Delivery Method Room Air Oxygen Flow Rate Fraction of Inspired Oxygen 09/08/23 22:20 09/08/23 22:30 09/08/23 22:30 Temperature Pulse Rate 91 H 91 H Respiratory Rate 17 15 Blood Pressure 114/59 L Pulse Oximetry 97 98 Oxygen Delivery Method Nasal Cannula Oxygen Flow Rate 2 Fraction of Inspired Oxygen 09/08/23 23:00 09/08/23 23:00 09/08/23 23:30 Temperature Pulse Rate 85 Respiratory Rate 14 Blood Pressure 109/62 125/62 Pulse Oximetry 98 Oxygen Delivery Method Nasal Cannula Oxygen Flow Rate 2 Fraction of Inspired Oxygen 09/08/23 23:30 09/09/23 00:00 09/09/23 00:00 Temperature Pulse Rate 82 81 Respiratory Rate 13 12 Blood Pressure 112/68 Pulse Oximetry 99 94 Oxygen Delivery Method Nasal Cannula Nasal Cannula Oxygen Flow Rate 2 2 Fraction of Inspired Oxygen 09/09/23 00:30 09/09/23 00:30 09/09/23 01:00 Temperature 98.7 F Pulse Rate 101 H 90 Respiratory Rate 15 16 Blood Pressure 119/65 118/75 Pulse Oximetry 96 99 Oxygen Delivery Method Nasal Cannula Oxygen Flow Rate 2 2 Fraction of Inspired Oxygen 09/09/23 01:15 09/09/23 01:36 Temperature Pulse Rate 82 Respiratory Rate 14 Blood Pressure Pulse Oximetry 96 Oxygen Delivery Method Nasal Cannula Nasal Cannula Oxygen Flow Rate 2 Fraction of Inspired Oxygen 28 Fraction of Inspired Oxygen 28 SaO2/FiO2 Ratio 342 Oxygen Delivery Method Nasal Cannula Oxygen Flow Rate 2 Narrative Exam Narrative: Patient is awake and able to give a decent history. Appears fatigued Port noted on the left subclavian region. Entry decreased at the bases no crackles Edema noted in the lower extremity bilaterally 1-2+ Abdomen soft Objective Labs 09/08/23 22:40 09/08/23 22:40 Labs: Laboratory Results - last 24 hr 09/08/23 09/08/23 09/08/23 22:40 23:00 23:16 WBC 2.6 L RBC 1.66 L Hgb 5.4 L* Hct 15.5 L* MCV 93.3 MCH 32.6 MCHC 34.9 RDW 16.6 H Plt Count 11 L* Neut % (Auto) Not Reportable Lymph % (Auto) Not Reportable Cooper % (Auto) Not Reportable Eos % (Auto) Not Reportable Baso % (Auto) Not Reportable Lymph # (Auto) Not Reportable Cooper # (Auto) Not Reportable Baso # (Auto) Not Reportable Total Counted 100 Seg Neutrophils % 71.0 H Band Neutrophils % 5.0 Lymphocytes % (Manual) 16.0 L Monocytes % (Manual) 6.0 Eosinophils % (Manual) 1.0 L Metamyelocytes % 1.0 H Neutrophils # (Manual) 1976 L Nucleated RBCs 4 H Platelet Estimate Decreased on smear RBC Morphology See below Polychromasia 1+ H Anisocytosis 1+ H PT 15.4 H INR 1.3 APTT 33 Sodium 130 L Potassium 4.4 Chloride 100 Carbon Dioxide 29 BUN 21 H Creatinine 1.10 Estimated GFR > 60 BUN/Creatinine Ratio 19.1 Glucose 125 H Lactate 1.8 Calcium 8.2 L Total Bilirubin 0.8 AST 66 H ALT 16 Alkaline Phosphatase 68 NT-Pro-B Natriuret Pep 696 H Total Protein 5.5 L Albumin 3.1 L Globulin 2.4 Albumin/Globulin Ratio 1.3 Lipase 37 Procalcitonin 0.395 Urine Color Red Urine Appearance Cloudy Urine pH 8.0 Ur Specific Ripley 1.015 Urine Protein 3+ H Urine Glucose (UA) Negative Urine Ketones Negative Urine Occult Blood 3+ H Urine Nitrate Positive H Urine Bilirubin 1+ H Ur Bilirubin Confirm Negative Urine Urobilinogen 1.0 Ur Leukocyte Esterase 2+ H Urine RBC >100/hpf H Urine WBC >100/hpf H Ur Squamous Epith Cells None seen Urine Bacteria Many (>30) H Ur Culture Indicated? Specimen cultured Vol Urine Centrifuged 10ml (spun) Blood Type A Positive Antibody Screen Negative Crossmatch See Detail Assessment & Plan Assessment & Plan narrative: 78 years old male with a past medical history of prostate cancer diagnosed initially in 2010 status post radiation therapy/seed placement with recurrence in 2016 and radionuclide therapy in [facility] in [place] with the recurrence of prostate cancer noted by elevated PSA and was being considered for experimental K2 treatment and not given due to low platelet counts. Trial of testosterone was given on 08/27/2023 but the following day became hypotensive with significant urinary retention and had a Fernandez catheter placed prior to discharge home on 08/29/2023. He was due to see his urologist on 09/15/2023 but of late, family noted patient was increasingly fatigued with minimal exertion and activities of daily living and was requiring assistance even with ambulation. He usually was independent prior to this and eventually they brought him for concerns for possible urinary tract infection. The urine in the catheter itself is cloudy as noted in the emergency room. Denies any shortness of breath but did have an episode of chest pain mainly in the retrosternal region on arrival to the floor that has since resolved. He has a port in place on the left subclavian region. No recent history of falls or trauma. Denies any headache or double vision. Denies any abdominal pain. Does have constipation chronic with the last bowel movement 3 to 4 days ago. Initially in the ED noted to be tachycardic with soft blood pressures in the systolic of 104. WBC count was 2.6 with a hemoglobin of 5.4 and a platelet count of 11. Sodium 130 with a potassium 4.4, BUN of 21 and a creatinine 1.1. Patient denies any bleeding anywhere. INR is 1.3. Urine analysis is positive for greater than 100 WBCs and leukocyte esterase 2+ positive. Urine cultures were sent as well as of the blood cultures and patient was given a dose of IV Rocephin and admitted for further evaluation. 2 units of packed red blood cell irradiated and 2 units of platelet irradiated has been ordered but arrival is about 2 hours away. Initially advised transfer to a tertiary care center but per family's insistence, patient has been admitted for further evaluation 1. Anemia acute. No active bleeding noted but does have significant prostate cancer history with radiation/chemotherapy. Suspect more of a cancer induced anemia. Transfused 2 units of irradiated PRBC and trend the hemoglobin level closely 2. Severe thrombocytopenia. No active bleeding noted but levels have dropped to 11 and high risk of bleeding. Ordered 2 units of platelets and trend for now 3. Urinary tract infection in a patient with a history of prostate cancer and immune suppression with leukopenia. Follow the cultures and continue the Rocephin. Will give a dose of IV vancomycin. Replace the Fernandez catheter. Lactic acid is normal 4. Chest pain. Suspect more from musculoskeletal and does not appear to be cardiac. Check a cardiac enzymes. EKG is nonspecific. Follow-up with an echocardiogram and monitor on the telemetry 5. DVT prophylaxis will be with SCDs 6 prostate cancer with ongoing follow-up by urology in outpatient setting CODE STATUS is full Patient will be admitted under inpatient status given the severe anemia and thrombocytopenia needing blood transfusion in the setting of urinary tract infection/leukopenia/prostate cancer Time-Based Coding :: [TOTAL MINUTES] spent with patient and on the chart (including review of chart, obtaining history, exam, reviewing outside data, placing orders, documenting exam and treatment plan, and counseling patient) on [DATE].
[2023-09-09] MEDS: SODIUM CHLORIDE 0.9% 1,000 ML 50 ML IV (02:10)
[2023-09-09] MEDS: VANCOMYCIN 1,000 MG/200 ML PIGGYBACK 200 MG IV (02:25)
[2023-09-09 02:36] LABS: Creatine Kinase 248 U/L (55-170)
[2023-09-09 02:49] LABS: Troponin I 0.065 ng/mL (0.01-0.034)
--- NOTE | 2023-09-09 04:48 | PC.NURSE ---
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 Patient is alert to self, place, situation, and date; however appears forgetful at times. VSS, O2 saturation 91% on RA, placed patient on 2L NC, O2 saturation 98%. Upon arrival, patient stated that he had 5/10 left arm and shoulder pain that has been going on for several weeks, he also stated he was having left-sided chest pain that started about an hour ago. Denied SOB or nausea. Notified MD Arevalo, new orders placed. EKG completed, cont tele placed, labs ordered. Patient reported that his pain had stopped and was feeling comfortable approximately 20 minutes later. Patient came in with monae catheter placed 08/28/23, replaced monae catheter per MD order. Monae replaced 09/09/23. Blood products infusing as ordered, no adverse reactions noted at this time. Oriented to call-light, plan of care ongoing.
[2023-09-09] MEDS: FUROSEMIDE 20 MG/2 ML VIAL IV (06:41)
[2023-09-09] MEDS: MULTIVITAMIN 1 TABLET 1 TAB PO (08:50)
[2023-09-09] MEDS: SENNOSIDES 8.6 MG TABLET 17.2 MG PO ×2 (08:50→21:08)
[2023-09-09] MEDS: GABAPENTIN 300 MG CAPSULE PO ×2 (08:50→21:08)
[2023-09-09] MEDS: OXYCODONE IR 10 MG TABLET PO ×3 (08:50→23:11)
--- NOTE | 2023-09-09 10:39 | DIET.CONS ---
Dietary Consultation Note Admission Date: 09/09/2023 00:09 Assessment: 78 y M admitted for UTI/acute anemia. Nutrition consulted for low MNA. Met with pt at bedside, pt is fatigued. Report a notable change in appetite in last 4 weeks w/ weight loss r/t various taste changes and decreased energy. Tolerated foods/diet recall: cream of wheat Ensure Enlive potatoes Nutrition focused physical exam: -Moderate muscle mass loss temporalis, deltoids, trapezius, pectoralis, interosseous -Moderate subcutaneous fat loss buccal and orbital fat pads Ht: 175.26 cm Wt: 66.5 kg BMI: 21.6 UBW: 75 kg 1+ yrs ago, 62.27 kg 4 weeks ago per pt, currently has bilateral LE edema Last BM: 09/06/23 (09/09/23 00:21) MNA: 6 Yvan Score: 18 Diet: 09/08/23 22:04 NPO Diet Diet Modifications: NPO Type: NPO except for Meds 09/09/23 Breakfast Heart Healthy Diet Diet Modifications: Labs: RBC 1.66 X10^6/uL (4.5-5.9) L 09/08/23 22:40 Hgb 5.4 g/dL (13.5-17.5) L* 09/08/23 22:40 Hct 15.5 % (41-53) L* 09/08/23 22:40 Creatinine 1.10 mg/dL (0.66-1.25) 09/08/23 22:40 Lactate 1.8 mmol/L (0.7-2.1) 09/08/23 22:40 NT-Pro-B Natriuret Pep 696 pg/mL (<450) H 09/08/23 22:40 Nutrition Diagnosis: Severe acute on chronic Protein Calorie Malnutrition r/t inadequate intake with increased energy-protein needs as evidenced by <75% of estimated energy requirements for 1 month, moderate muscle mass loss (temporalis, deltoids, trapezius, pectoralis, interosseous), moderate subcutaneous fat loss (buccal and orbital), prostate cancer, sepsis, BMI underweight for age (21.6) Interventions: 1. ONS TID 2. Nutrition therapy handout for taste changes and adequate protein/energy EER: 1700 kcals (25kcal/kg per sepsis) 85-100 g protein (1.3-1.5 g/kg per PCM,sepsis) Monitoring/Evaluations: po intakes Electronically Signed by: Brittany Harrison 09/09/23 10:39 Clinical Dietitian [address] [id number]
[2023-09-09 11:28] LABS: Add Manual Diff / Slide Review NO; Basophils Absolute Auto 0 /uL (0-100); Basophils Percent Auto 0.5 % (0-2); Eosinophils Absolute Auto 0 /uL (0-450); Eosinophils Percent Auto 1.3 % (2-4); Hemoglobin 7.3 g/dL (13.5-17.5); Lymphocytes Absolute Auto 500 /uL (1100-4500); Mean Corpuscular HGB Conc 35.1 % (30-36); Mean Corpuscular Hemoglobin 31.6 PG (26-34); Mean Corpuscular Volume 90.3 fL (80-100); Monocytes Absolute Auto 200 /uL (0-900); Monocytes Percent Auto 7.6 % (3-14); Neutrophils Absolute Auto 2100 /uL (1500-7000); Neutrophils Percent Auto 73.6 % (50-75); Red Blood Cell Count 2.29 X10^6/uL (4.5-5.9); Red Cell Distribution Width 15.7 % (11.6-14.8); White Blood Cell Count 2.8 X10^3/uL (4.5-11.0)
[2023-09-09 11:29] LABS: Hematocrit 20.7 % (41-53); Platelet Count 11 X10^3/uL (150-400)
[2023-09-09 11:37] LABS: Platelet Estimate Decreased on smear
--- NOTE | 2023-09-09 12:13 | P.HP_ITS ---
History of Present Illness History of Present Illness Date Patient Seen: 09/09/23 Time Patient Seen: 10:00 Chief complaint: poss uti/has cathetar Narrative: Per overnight provider, 78 years old male with a past medical history of prostate cancer diagnosed initially in 2010 status post radiation therapy/seed placement with recurrence in 2016 and radionuclide therapy in [facility] in [place] with the recurrence of prostate cancer noted by elevated PSA and was being considered for experimental K2 treatment and not given due to low platelet counts. Trial of testosterone was given on 08/27/2023 but the following day became hypotensive with significant urinary retention and had a Monae catheter placed prior to discharge home on 08/29/2023. He was due to see his urologist on 09/15/2023 but of late, family noted patient was increasingly fatigued with minimal exertion and activities of daily living and was requiring assistance even with ambulation. He usually was independent prior to this and eventually they brought him for concerns for possible urinary tract infection. The urine in the catheter itself is cloudy as noted in the emergency room. Denies any shortness of breath but did have an episode of chest pain mainly in the retrosternal region on arrival to the floor that has since resolved. He has a port in place on the left subclavian region. No recent history of falls or trauma. Denies any headache or double vision. Denies any abdominal pain. Does have constipation chronic with the last bowel movement 3 to 4 days ago. Initially in the ED noted to be tachycardic with soft blood pressures in the systolic of 104. WBC count was 2.6 with a hemoglobin of 5.4 and a platelet count of 11. Sodium 130 with a potassium 4.4, BUN of 21 and a creatinine 1.1. Patient denies any bleeding anywhere. INR is 1.3. Urine analysis is positive for greater than 100 WBCs and leukocyte esterase 2+ positive. Urine cultures were sent as well as of the blood cultures and patient was given a dose of IV Rocephin and admitted for further evaluation. 2 units of packed red blood cell irradiated and 2 units of platelet irradiated has been ordered but arrival is about 2 hours away. Initially advised transfer to a tertiary care center but per family's insistence, patient has been admitted for further evaluation Updates. Patient feels comfortable, no nausea or vomiting. Continues to feel weak. 2U PRBC currently infused, Plt still not given but stable at 11. PFSH Medical History (Updated 09/09/23 @ 00:07 by Myron Vazquez MD) Androgen deprivation therapy History of radiation therapy Frequency of micturition Urinary urgency Nocturia Lower urinary tract symptoms Hx of closed dislocation of shoulder Hx of prostatic malignancy Hx of renal calculi Surgical History Hx of bilateral inguinal hernia repair Hx of prostate biopsy Hx of circumcision Hx of prostatectomy Family History Mother Cancer Sister Cancer Social History marital status: household members: spouse Smoking Status: Never smoker alcohol intake: former caffeine: Yes Type(s) of exercise: bicycling frequency: 1-2 times per week duration: 45-60 minutes/day Meds Home Medications and Allergies Home Medications Medication Instructions Recorded Confirmed Type bisacodyl 10 mg rectal suppository 10 mg [place] DAILY 09/09/23 09/09/23 History cholecalciferol (vitamin D3) 25 25 mcg PO DAILY 09/09/23 09/09/23 History mcg (1,000 unit) tablet (Vitamin D3) gabapentin 300 mg capsule 300 mg PO 2XD 09/09/23 09/09/23 History multivitamin with minerals 1 cap PO DAILY 09/09/23 09/09/23 History oxycodone 5 mg tablet 10 mg PO Q8H PRN severe pain 09/09/23 09/09/23 History rosuvastatin 5 mg tablet 5 mg PO BEDTIME 09/09/23 09/09/23 History sennosides 8.6 mg tablet (senna) 17.2 mg PO BID 09/09/23 09/09/23 History Allergies Allergy/AdvReac Type Severity Reaction Status Date / Time No Known Drug Allergies Allergy Verified 04/11/21 15:09 Review of Systems Review of Systems Narrative: All other systems reviewed with the patient and are negative unless otherwise stated. Exam Vital Signs (past 8 hours): - 09/09/23 05:18 09/09/23 06:20 09/09/23 06:49 Temperature 98.1 F 98.0 F Pulse Rate 79 83 79 Respiratory Rate 18 16 18 Blood Pressure 108/65 120/75 108/69 Pulse Oximetry 96 Oxygen Delivery Method Oxygen Flow Rate 2 Fraction of Inspired Oxygen 09/09/23 07:05 09/09/23 08:00 09/09/23 09:05 Temperature 97.9 F 98.6 F Pulse Rate 89 78 Respiratory Rate 16 18 Blood Pressure 103/65 109/68 Pulse Oximetry 99 100 Oxygen Delivery Method Nasal Cannula Oxygen Flow Rate 1.5 1.5 Fraction of Inspired Oxygen 09/09/23 09:15 09/09/23 11:51 Temperature 98.5 F Pulse Rate 73 Respiratory Rate 18 Blood Pressure 101/63 Pulse Oximetry 96 95 Oxygen Delivery Method Room Air Oxygen Flow Rate Fraction of Inspired Oxygen 21 Fraction of Inspired Oxygen 21 SaO2/FiO2 Ratio 457 Oxygen Delivery Method Room Air Oxygen Flow Rate 1.5 Narrative Exam Narrative: General:? Thin appearing male, pale, no acute distress. HEENT:? Normocephalic, atraumatic, extraocular muscles intact, oral pharynx is clear and mucous membranes are slightly dry. No petechiae noted. Neck: supple and symmetric, trachea is midline, no cervical adenopathy. Negative for JVD Chest:? Normal AP diameter and contour without kyphoscoliosis, no tachypnea, equal chest rise bilaterally. Lungs:? CTA b/l no wheezing rhonchi or rales. Cardio:?RRR no m/r/g. Abdomen: S NT ND. Musculoskeletal:? Muscle strength and tone are equal within normal limits, no deformity. Extremities: No edema or joint effusions. No cyanosis or clubbing. Skin:? Pale,? Warm to touch,dry and intact without rashes, ulcerations or petechiae.?Scattered bruising in upper extremities. Neuro:? Alert and orientated to person and hospital, slight confusion.? sensation to touch intact in all extremities, no gross deficits noted of cranial nerves. Psych:? Patient has a well-kept appearance, appropriate affect, mental status attitude thought context and judgment are appropriate for age. Objective Labs 09/09/23 10:30 09/08/23 22:40 Labs: Laboratory Results - last 24 hr 09/08/23 09/08/23 09/08/23 22:40 23:00 23:16 WBC 2.6 L RBC 1.66 L Hgb 5.4 L* Hct 15.5 L* MCV 93.3 MCH 32.6 MCHC 34.9 RDW 16.6 H Plt Count 11 L* Neut % (Auto) Not Reportable Lymph % (Auto) Not Reportable Bartholomew % (Auto) Not Reportable Eos % (Auto) Not Reportable Baso % (Auto) Not Reportable Neut # (Auto) Lymph # (Auto) Not Reportable Bartholomew # (Auto) Not Reportable Eos # (Auto) Baso # (Auto) Not Reportable Total Counted 100 Seg Neutrophils % 71.0 H Band Neutrophils % 5.0 Lymphocytes % (Manual) 16.0 L Monocytes % (Manual) 6.0 Eosinophils % (Manual) 1.0 L Metamyelocytes % 1.0 H Neutrophils # (Manual) 1976 L Nucleated RBCs 4 H Platelet Estimate Decreased on smear RBC Morphology See below Polychromasia 1+ H Anisocytosis 1+ H PT 15.4 H INR 1.3 APTT 33 Sodium 130 L Potassium 4.4 Chloride 100 Carbon Dioxide 29 BUN 21 H Creatinine 1.10 Estimated GFR > 60 BUN/Creatinine Ratio 19.1 Glucose 125 H Lactate 1.8 Calcium 8.2 L Total Bilirubin 0.8 AST 66 H ALT 16 Alkaline Phosphatase 68 Total Creatine Kinase Troponin I NT-Pro-B Natriuret Pep 696 H Total Protein 5.5 L Albumin 3.1 L Globulin 2.4 Albumin/Globulin Ratio 1.3 Lipase 37 Procalcitonin 0.395 Urine Color Red Urine Appearance Cloudy Urine pH 8.0 Ur Specific [place] 1.015 Urine Protein 3+ H Urine Glucose (UA) Negative Urine Ketones Negative Urine Occult Blood 3+ H Urine Nitrate Positive H Urine Bilirubin 1+ H Ur Bilirubin Confirm Negative Urine Urobilinogen 1.0 Ur Leukocyte Esterase 2+ H Urine RBC >100/hpf H Urine WBC >100/hpf H Ur Squamous Epith Cells None seen Urine Bacteria Many (>30) H Ur Culture Indicated? Specimen cultured Vol Urine Centrifuged 10ml (spun) Blood Type A Positive Antibody Screen Negative Crossmatch See Detail 09/09/23 09/09/23 02:15 10:30 WBC 2.8 L RBC 2.29 L Hgb 7.3 L Hct 20.7 L* MCV 90.3 D MCH 31.6 MCHC 35.1 RDW 15.7 H Plt Count 11 L* Neut % (Auto) 73.6 Lymph % (Auto) 17.0 L Barth[place]omew % (Auto) 7.6 Eos % (Auto) 1.3 L Baso % (Auto) 0.5 Neut # (Auto) 2100 Lymph # (Auto) 500 L [place]tholomew # (Auto) 200 Eos # (Auto) 0 Baso # (Auto) 0 Total Counted Seg Neutrophils % Band Neutrophils % Lymphocytes % (Manual) Monocytes % (Manual) Eosinophils % (Manual) Metamyelocytes % Neutrophils # (Manual) Nucleated RBCs Platelet Estimate Decreased on smear RBC Morphology Not Reportable Polychromasia Anisocytosis PT INR APTT Sodium Potassium Chloride Carbon Dioxide BUN Creatinine Estimated GFR BUN/Creatinine Ratio Glucose Lactate Calcium Total Bilirubin AST ALT Alkaline Phosphatase Total Creatine Kinase 248 H Troponin I 0.065 H 0.030 NT-Pro-B Natriuret Pep Total Protein Albumin Globulin Albumin/Globulin Ratio Lipase Procalcitonin Urine Color Urine Appearance Urine pH Ur Specific [place] Urine Protein Urine Glucose (UA) Urine Ketones Urine Occult Blood Urine Nitrate Urine Bilirubin Ur Bilirubin Confirm Urine Urobilinogen Ur Leukocyte Esterase Urine RBC Urine WBC Ur Squamous Epith Cells Urine Bacteria Ur Culture Indicated? Vol Urine Centrifuged Blood Type Antibody Screen Crossmatch Assessment & Plan Assessment & Plan narrative: 78 years old male with a past medical history of prostate cancer admitted with sepsis secondary to acute cystitis after recent monae catheter placement for urinary obstruction, with pancytopenia currently getting PRBC and plt transfusion. 1. Sepsis secondary to acute cystitis in setting of chronic monae catheter, with acute metabolic encephalopathy, severe acute on chronic thrombocytopenia, acute respiratory failure with hypoxia - continue ceftriaxone 1g q24 hr, urine cultures currently with GNB. Consider meropenem if clinically decompensating for possible ESBL organism. Though appears stable currently. - monae catheter was changed in the ER. 2. Pancytopenia - patient has chronic pancytopenia, but recently at OSH Plt were 29, Hg 7.8, and WBC 2. Suspect in setting of chemotherapy and prostate cancer. - gave 2 U PRBC with improvement in Hg to 7.3. Will continue to trend no signs or symptoms of active bleeding. - Plt stable at 11 this morning, transfusion pending. Will repeat values tomorrow unless clinical change today. - no schistocytes noted on CBC, doubt DIC currently. 3. Elevated troponin / myocardial injury - likely due to demand. Downtrended on repeat. EKG unremarkable and no chets pain. 4. Prostate cancer with history of urinary retention - continue monae, replaced this admission. - has outpatient follow up with urology scheduled. - continue pain control with oxycodone. Continue home gabapentin. 5. Hyponatremia, mild - continue to follow, likely hypovolemic. 6. HLD - continue home statin Code: Full, surrogate is patient's spouse DVT: Lovenox daily I have utilized all available immediate resources to obtain, update, or review the patient's current medications. Dispo: patient admitted under inpatient status. Unclear if will be able to discharge home or possible SNF, will have PT/OT evaluations once Plt count improved, likely tomorrow. Additional history obtained via discussions with the overnight provider. These discussions contributed to the creation of the above assessment and plan. I have reviewed patient's presenting documentation, labs, and imaging personally. Time-Based Coding :: [TOTAL MINUTES] spent with patient and on the chart (including review of chart, obtaining history, exam, reviewing outside data, placing orders, documenting exam and treatment plan, and counseling patient) on [DATE].
--- NOTE | 2023-09-09 13:44 | CM.DANOTE ---
Initial DCP Assessment Visit Note Reviewed EMR and team rounds for status updates. Met with pt at bedside to introduce self and role, pt was found to be sitting upright in bed, appeared very fatigued, somewhat mentally foggy, was able to discuss his preference for home d/c, and possibly needing additional in-home cg resources prior to d/c back to [place]. Pt lives typically independently in his own home w/his , however he was been declining in overall disease progression, and is on active chemotherapy tx w/[facility]-OP. He already has a Medical Priority Boarding Pass for his return home. His will be transporting him. Payor: Medicare PCP: Dr. Wells Pt is a 78 year-old M with a hx of prostate cancer and recent recurrence presented to the ED with increased weakness, fatigue, and as of yesterday needing assistance with mobility, he is otherwise usually independent at baseline. Pt is being treated at [facility] with chemo, is set to start a new tx, however this has been delayed due to low platelets. In the ED, he was found to have a low hemoglobin, high white blood cell count, and low platelets. He was given 2-units of blood, started on IV ABO's for UTI, and is scheduled to also have platelets at some point today. He was also found to have thrombocytopenia, has a monae catheter that was just placed at [facility] on 08/27. 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 DCP will continue to follow and assist him/spouse with the in-home resources that they need prior to home d/c. Discharge Planning/Care Management Advanced directive, confirm from FAMILY Start: 09/09/23 01:30 Freq: Q24H Status: Active Protocol: Document 09/09/23 01:30 CM (Rec: 09/09/23 02:45 CM [id number]) Advance Directive, confirm on record Time 01:00 Person contacted Annel () Copy received No CM Discharge Assessment Start: 09/09/23 13:40 Freq: Status: Active Protocol: Document 09/09/23 13:40 DPL (Rec: 09/09/23 13:43 DPL [id number]) Discharge Planning Assessment Assigned [employer]eding Distributor RODRIGO Reis Advance Directives? Yes Advance Directives on File No History Provided By Patient,Medical Record Expected Length of Stay 3 Has Patient been admitted in last 30 No days? Prior Living Arrangements House Household Members spouse Independent with ADL's No: modified independent due to disease progression and being in active chemo. Is patient alert and oriented? No: semi-alert, is oriented Needs Assistance With Meal Prep,Managing Medications ,Home Chores / Shopping Caregiver for Another No Comment OP Oncology tx at [facility]. Comment u/k Comment Home with in-home cg resources . Barriers to Discharge No Discharge Plan Home Transportation Arrangement Spouse Additional Comment Cg resources will be provided prior to d/c. Whiteboard Updated in Patient Room with Yes name and ext. # of Artificial Breeding Distributor Review Status In Process Please Provide Date Initial DC 09/09/23 Assessment Was Performed
[2023-09-09] MEDS: ACETAMINOPHEN 325 MG TABLET 650 MG PO (18:54)
[2023-09-09] MEDS: SODIUM CHLORIDE 0.9% FLUSH 10 ML IV (21:08)
[2023-09-09] MEDS: cefTRIAXone 1,000 MG in SODIUM CHLORIDE 0.9% 100 ML 200 MG IV (21:45)
[2023-09-09] MEDS: SODIUM CHLORIDE 0.9% 250 ML 20 ML IV (23:21)
[2023-09-10] VITALS: BP 120/86; PULSE 74; RESP 17; TEMP 37; O2SAT 96
[2023-09-10 04:00] VITALS: BP 110/86; PULSE 70; RESP 18; TEMP 36.5; O2SAT 96
[2023-09-10] MEDS: ACETAMINOPHEN 325 MG TABLET 650 MG PO ×2 (04:32→14:50)
[2023-09-10] MEDS: OXYCODONE IR 10 MG TABLET PO ×3 (04:33→14:50)
--- NOTE | 2023-09-10 06:02 | PC.NURSE ---
Message sent to Dr. Arevalo, pt. requesting medication for constipation awaiting for response. Last BM recorded was on 09/06/23. Will report to day RN.
[2023-09-10 08:00] VITALS: BP 107/68; PULSE 76; RESP 16; TEMP 36.4; O2SAT 96
[2023-09-10] MEDS: GABAPENTIN 300 MG CAPSULE PO (09:02)
[2023-09-10] MEDS: MULTIVITAMIN 1 TABLET 1 TAB PO (09:03)
[2023-09-10] MEDS: SENNOSIDES 8.6 MG TABLET 17.2 MG PO (09:03)
[2023-09-10 10:52] LABS: Add Manual Diff / Slide Review NO; Basophils Absolute Auto 0 /uL (0-100); Basophils Percent Auto 0.6 % (0-2); Eosinophils Absolute Auto 100 /uL (0-450); Eosinophils Percent Auto 2.8 % (2-4); Hemoglobin 7.2 g/dL (13.5-17.5); Lymphocytes Absolute Auto 400 /uL (1100-4500); Lymphocytes Percent Auto 15.7 % (25-40); Mean Corpuscular Hemoglobin 31.6 PG (26-34); Mean Corpuscular Volume 90.2 fL (80-100); Monocytes Absolute Auto 200 /uL (0-900); Monocytes Percent Auto 7.2 % (3-14); Neutrophils Absolute Auto 1900 /uL (1500-7000); Neutrophils Percent Auto 73.7 % (50-75); Platelet Count 55 X10^3/uL (150-400); Red Blood Cell Count 2.29 X10^6/uL (4.5-5.9); Red Cell Distribution Width 16.2 % (11.6-14.8); White Blood Cell Count 2.6 X10^3/uL (4.5-11.0)
[2023-09-10 10:54] LABS: Hematocrit 20.7 % (41-53)
[2023-09-10 11:09] LABS: BUN Creatinine Ratio 22.8 (6-22); Blood Urea Nitrogen 21 mg/dL (9-20); Calcium 7.7 mg/dL (8.4-10.2); Carbon Dioxide 27 mmol/L (22-32); Chloride 103 mmol/L (98-107); Estimated Glomerular Filt Rate > 60 mL/min (>60); Glucose 107 mg/dL (80-110); HEMOLYSIS < 15 (0-50); Magnesium 2.2 mg/dL (1.6-2.3); Sodium 133 mmol/L (137-145)
--- NOTE | 2023-09-10 11:39 | PM.DS.1 ---
History of Present Illness History of Present Illness Date Patient Seen: 09/10/23 Time Patient Seen: 11:39 Chief complaint: poss uti/has cathetar Narrative: Per overnight provider, 78 years old male with a past medical history of prostate cancer diagnosed initially in 2010 status post radiation therapy/seed placement with recurrence in 2016 and radionuclide therapy in [facility] in [place] with the recurrence of prostate cancer noted by elevated PSA and was being considered for experimental K2 treatment and not given due to low platelet counts. Trial of testosterone was given on 08/27/2023 but the following day became hypotensive with significant urinary retention and had a Monae catheter placed prior to discharge home on 08/29/2023. He was due to see his urologist on 09/15/2023 but of late, family noted patient was increasingly fatigued with minimal exertion and activities of daily living and was requiring assistance even with ambulation. He usually was independent prior to this and eventually they brought him for concerns for possible urinary tract infection. The urine in the catheter itself is cloudy as noted in the emergency room. Denies any shortness of breath but did have an episode of chest pain mainly in the retrosternal region on arrival to the floor that has since resolved. He has a port in place on the left subclavian region. No recent history of falls or trauma. Denies any headache or double vision. Denies any abdominal pain. Does have constipation chronic with the last bowel movement 3 to 4 days ago. Initially in the ED noted to be tachycardic with soft blood pressures in the systolic of 104. WBC count was 2.6 with a hemoglobin of 5.4 and a platelet count of 11. Sodium 130 with a potassium 4.4, BUN of 21 and a creatinine 1.1. Patient denies any bleeding anywhere. INR is 1.3. Urine analysis is positive for greater than 100 WBCs and leukocyte esterase 2+ positive. Urine cultures were sent as well as of the blood cultures and patient was given a dose of IV Rocephin and admitted for further evaluation. 2 units of packed red blood cell irradiated and 2 units of platelet irradiated has been ordered but arrival is about 2 hours away. Initially advised transfer to a tertiary care center but per family's insistence, patient has been admitted for further evaluation Updates. Patient feels comfortable, no nausea or vomiting. Continues to feel weak. 2U PRBC currently infused, Plt still not given but stable at 11. Discharge Providers Provider Date of admission: 09/09/23 00:09 Discharge Date: 09/10/23 Primary care physician: Shaheen Wells MD Consults: 09/09/23 01:30 Consult to Dietitian, Adult Routine Comment: Reason For Exam: severe weight loss and decreased appetite Discharge provider: Roland Watts DO Summary Hospital Course Discharge Diagnosis: 1. Sepsis secondary to acute cystitis in setting of chronic monae catheter, with acute metabolic encephalopathy, severe acute on chronic thrombocytopenia, acute respiratory failure with hypoxia 2. Pancytopenia 3. Elevated troponin / myocardial injury 4. Prostate cancer with history of urinary retention 5. Hyponatremia, mild 6. HLD Hospital Course: 78 years old male with a past medical history of prostate cancer admitted with sepsis secondary to acute cystitis after recent monae catheter placement for urinary obstruction, with pancytopenia that initially required PRBC and plt transfusion. After transfusion his Hg and Plt values had improved to near his usual baseline (hg just above 7 and Plt >50). He had no evidence of active bleeding. His initial hypoxia also resolved quickly and supplemental O2 was weaned. Troponin initially was elevated but downtrended on repeat. He had no chest pain or evidence of ischemia on EKG. He was started on ceftriaxone for his acute cystitis with improvement more quickly than expected. Urine cultures currently are with GNB, but not finalized. Discussed with patient continued monitoring of his blood counts in the hospital and awaiting culture results vs discharge home, and patient elected for discharge home after risk-benefit discussion and the fact that he felt back to his usual baseline. He was discharged on oral cefdinir given improvement with ceftriaxone. He also requested a smaller prescription for dronabinol for appetite stimulation which had been recommended by his team at [facility]. Recommend repeat lab evaluation in the coming days to check his blood counts, he may require chronic transfusions based on recent anemia trends and hospitalizations. Time Spent with Patient Time spent: Greater than 30 minutes Exam Vital Signs (past 8 hours): - 09/10/23 04:00 09/10/23 08:00 Temperature 97.7 F 97.6 F Pulse Rate 70 76 Respiratory Rate 18 16 Blood Pressure 110/86 107/68 Pulse Oximetry 96 96 Oxygen Flow Rate 0 0 Fraction of Inspired Oxygen 21 SaO2/FiO2 Ratio 457 Oxygen Delivery Method Room Air Oxygen Flow Rate 0 Narrative Exam Narrative: General:? Thin appearing male, pale, no acute distress. Chest:? Normal AP diameter and contour without kyphoscoliosis, no tachypnea, equal chest rise bilaterally. Lungs:? CTA b/l no wheezing rhonchi or rales. Cardio:?RRR no m/r/g. Musculoskeletal:? Muscle strength and tone are equal within normal limits, no deformity. Extremities: No edema or joint effusions. No cyanosis or clubbing. Objective Labs 09/10/23 10:30 09/10/23 10:30 Labs: Laboratory Results - last 24 hr 09/08/23 09/09/23 09/10/23 23:16 10:30 10:30 WBC 2.6 L RBC 2.29 L Hgb 7.2 L Hct 20.7 L* MCV 90.2 MCH 31.6 MCHC 35.0 RDW 16.2 H Plt Count 55 L Neut % (Auto) 73.7 Lymph % (Auto) 15.7 L [place] % (Auto) 7.2 Eos % (Auto) 2.8 Baso % (Auto) 0.6 Neut # (Auto) 1900 Lymph # (Auto) 400 L [place] # (Auto) 200 Eos # (Auto) 100 Baso # (Auto) 0 Sodium 133 L Potassium 4.0 Chloride 103 Carbon Dioxide 27 BUN 21 H Creatinine 0.92 Estimated GFR > 60 BUN/Creatinine Ratio 22.8 H Glucose 107 Calcium 7.7 L Magnesium 2.2 Troponin I 0.030 Blood Type A Positive Antibody Screen Negative Crossmatch See Detail [facility] Medical History (Updated 09/09/23 @ 00:07 by Myron Vazquez MD) Androgen deprivation therapy History of radiation therapy Frequency of micturition Urinary urgency Nocturia Lower urinary tract symptoms Hx of closed dislocation of shoulder Hx of prostatic malignancy Hx of renal calculi Surgical History Hx of bilateral inguinal hernia repair Hx of prostate biopsy Hx of circumcision Hx of prostatectomy Family History Mother Cancer Sister Cancer Social History marital status: household members: spouse Smoking Status: Never smoker alcohol intake: former caffeine: Yes Type(s) of exercise: bicycling frequency: 1-2 times per week duration: 45-60 minutes/day Discharge Plan Discharge Plan Patient Disposition: Home Health Service Provider Discharge Comment: You were admitted to the hospital with a urinary infection, improved with antibiotics. Sent 30 caps of dronabinol locally, along with another week of antibiotics to complete therapy at home. Can also add iron supplementation every other day in addition to your multivitamin. No other medication changes needed. Discharge orders & Medications Prescriptions: New cefdinir 300 mg capsule 300 mg PO BID 7 Days Qty: 14 0RF dronabinol 2.5 mg capsule 2.5 mg PO BID 15 Days Qty: 30 0RF Rx Instructions: administer before lunch and evening meal/dinner Continued gabapentin 300 mg capsule 300 mg PO 2XD cholecalciferol (vitamin D3) [Vitamin D3] 25 mcg (1,000 unit) Tablet 25 mcg PO DAILY multivitamin with minerals Capsule 1 cap PO DAILY oxycodone 5 mg tablet 10 mg PO Q8H PRN (Reason: severe pain) rosuvastatin 5 mg tablet 5 mg PO BEDTIME sennosides [senna] 8.6 mg Tablet 17.2 mg PO BID bisacodyl 10 mg Suppository 10 mg ID DAILY Follow up/Referrals: Shaheen Wells MD [Primary Care Provider] - Diet/Activity/Treatments Diet: Diet as Tolerated and Regular Activity: As tolerated, no restrictions Visit Report/Discharge Packet Instructions: How to Care for Your Monae Catheter -- Male, Good Food Sources of Iron, DI for Blood Transfusion, DI for Urinary Tract Infection (UTI), How to Prevent Falls, DI for Prescription Opioid Use, DI for Encephalopathy, DI for Implanted Venous Access Port Stand Alone Forms: Patient Portal/API, Stroke Signs & Symptoms Discharge Data Primary Care Provider: Shaheen Wells
--- NOTE | 2023-09-10 13:22 | CM.DPNOTE ---
Addendum entered by RODRIGO Meeks 09/10/23 15:27: ADD: [facility] RN cannot access port for flushes. Updated patient and family. Original Note: DC Note Patient has been discharged home today. Met w/patient, his and son at bedside, reviewed discharge plan. Discussed HH and in home care options. Patient/family request referral to ; explained that [facility] is the only agency that serves [facility] and patient/family agreeable. Spouse wonders if patient can receive his port flushes either at the clinic (PCP: Estee Waldron) or via the [facility] RN. Provided the senior resource guide to patient and family and explained that there may be limited availability of in home caregivers on the [place], and to check with the [facility] for an updated list of in home care providers. 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 Placed call to the clinic on [place] and learned that they do not do port flushes. Spoke w/Karson at [facility] who reports it is likely that their RN can assist with port flushes however this referral will need to be reviewed to make sure they can accommodate. EVA Reyes, kindly has agreed to send this new referral to [facility] for review. Plan: Discharge home w/family via pov, [facility], close outpatient follow up. IRVING
--- NOTE | 2023-09-10 16:17 | PC.NURSE ---
Discharge: Spouse reports pt is back to [facility] mentation [facility]. He reports he feels much better today. Portacath de-accessed, used 50 units/ml heparin instead of 100 units/ml. Flushed per protocol, brisk refill of blood present when flushed. (Pt has low platelet count) No sxs of blood transfusion reaction but he is aware he can still have one up to 1 month after same. He has only been using a leg bag at home. Shown how to use a large drainage bag. They understand to only rinse with water and may use a little vinegar. He feels comfortable using the leg bag and large bag. His monae was replaced on 09/09/23 and the date was written down for him. Reviewed d/c packet. Questions were answered. His script was esent at a local pharmacy and they have already picked it up. He already has a medical priority load pass. Son and with pt at time of discharge, all feel comfortable about going home. Pt reports he has some constipation but he has what he needs at home for this. Pt d/c home via auto with family.
== END 2023-09-10 15:50 | disposition home health service (06) | DRG 698 ==
LOC: ED 09-09 00:07 → AC 09-09 00:10
PROVIDERS: Internal Medicine; Admitting Provider Internal Medicine; Emergency Provider Emergency Medicine; PCP Family Medicine; Referring Provider Emergency Medicine; Visit Provider Internal Medicine
DX: T83.511A Infection and inflammatory reaction due to indwelling urethral catheter, initial encounter (principal); A41.9 Sepsis, unspecified organism; G93.41 Metabolic encephalopathy; J96.01 Acute respiratory failure with hypoxia; R65.20 Severe sepsis without septic shock; N30.00 Acute cystitis without hematuria; D61.818 Other pancytopenia; I5A Non-ischemic myocardial injury (non-traumatic); E87.1 Hypo-osmolality and hyponatremia; R07.9 Chest pain, unspecified; C61 Malignant neoplasm of prostate; D63.0 Anemia in neoplastic disease; E78.5 Hyperlipidemia, unspecified
CPT/HCPCS: 36415; 36430; 71045; 80048; 80053; 81001; 82550; 83605; 83690; 83735; 83880; 84145; 84484; 85007; 85025; 85610; 85730; 86850; 86900; 86901; 87040; 87077; 87086; 87186; 93005; 93306; 96365; 96375; 96376; 99284; 99291; J0696; J1170; J1642; J1940; P9035

== ENCOUNTER 2023-09-12 19:34 | Inpatient (IN) | payer MEDICARE, OTHER, SELFPAY ==
[2023-09-09 00:21] VITALS: BMI 21.6
[2023-09-12] VITALS (23 sets, daily range): BP systolic 111–132; BP diastolic 61–74; PULSE 72–99; RESP 12–22; TEMP 37.6–38.3; O2SAT 91–96; BMI 20.7
--- NOTE | 2023-09-12 19:45 | ED.SEPSIS ---
HPI - Sepsis General Chief Complaint: Recheck/Abnormal Lab/Rx Evaluation Sepsis Infection Criteria Present: Documented Infection Narrative: 78-year-old male with history of metastatic prostate cancer, not currently undergoing chemo or radiation presents by gucci from [place] for fever, possible sepsis. Most recently underwent 6 rounds of radiation therapy through [facility] from June to August, however patient's cancer did not respond to treatments and per patient was deemed not a candidate for further treatments. Patient was seen in our emergency department 09/08/23 for fatigue and generalized weakness. He was admitted with urinary tract infection as well as pancytopenia with hemoglobin 5.4, platelets 11. Patient underwent 2 units transfusion of packed red blood cells as well as 1 unit transfusion of platelets. Patient had clinical improvement and he was discharged with oral cefdinir. Patient states that he initially felt better, but still generally fatigued. Today his measured an oral temperature of 102? F and called 911. Patient transported to the emergency department for further evaluation. Patient History Medical History Androgen deprivation therapy History of radiation therapy Frequency of micturition Urinary urgency Nocturia Lower urinary tract symptoms Hx of closed dislocation of shoulder Hx of prostatic malignancy Hx of renal calculi Surgical History Hx of bilateral inguinal hernia repair Hx of prostate biopsy Hx of circumcision Hx of prostatectomy Family History Mother Cancer Sister Cancer Social History marital status: household members: spouse Smoking Status: Never smoker alcohol intake: former caffeine: Yes Type(s) of exercise: bicycling frequency: 1-2 times per week duration: 45-60 minutes/day Smoking Status: Never smoker Substance Use Type: does not use Exam Initial Vital Signs Initial Vital Signs: Vital Signs Temperature 100.7 F H 09/12/23 19:37 Pulse Rate 89 09/12/23 19:37 Respiratory Rate 14 09/12/23 19:37 Blood Pressure 132/66 09/12/23 19:37 Pulse Oximetry 95 09/12/23 19:37 Oxygen Delivery Method Room Air 09/12/23 19:37 Const: Awake, alert, appears chronically unwell, frail Cardiac: regular rate, regular rhythm RESP: unlabored, clear bilaterally, no wheezing GI: Soft, nontender, nondistended, no rebound, no guarding Skin: dry, pale, no lesions Neuro: AO x3, CN II-XII grossly intact, moves all extremities Course Orders Ordered: ED Orders 09/12/23 19:44 XR chest 1V Stat EKG-12 Lead Stat 09/12/23 19:45 Blood Culture Stat Complete Blood Count AUTO DIFF Stat Comprehensive Metabolic Panel Stat Lactate (Lactic Acid) Stat PTT Partial Thromboplastin Brock Stat Procalcitonin Stat Prothrombin Time INR Stat RETIC [Reticulocyte Count, Percent] Stat Troponin & CK Cardiac Panel Stat 09/12/23 20:02 Respiratory Panel (Film Array) Stat 09/12/23 20:33 Urinalysis and Microscopic Stat 09/12/23 21:03 CT chest w con Stat 09/12/23 21:14 Type and Screen Stat transfuse [Packed Cells] Stat Acetaminophen (Acetaminophen 325 Mg Tablet) 650 mg PO Q6H PRN PRN Reason: Fever/Mild Pain (1-3) Dronabinol (Dronabinol 2.5 Mg Capsule) 2.5 mg PO BID [facility], [facility]1983 Gabapentin (Gabapentin 300 Mg Capsule) 300 mg PO BID [facility], [facility]1983 Hydromorphone HCl (Hydromorphone 0.5 Mg Inj) 0.5 mg IV Q2H PRN PRN Reason: Pain, Severe (7-10) Ceftriaxone Sodium 2,000 mg/ (Sodium Chloride) 100 mls @ 200 mls/hr IV Q24H FOR[facility], 1928[facility]1983 Naloxone HCl (Naloxone 0.4 Mg/Ml Vial) 0.2 mg IV Q2MIN PRN PRN Reason: Opiate Reversal Ondansetron HCl (Ondansetron 4 Mg/2 Ml Inj) 4 mg IV Q8HR PRN PRN Reason: Nausea And Vomiting Oxycodone HCl (Oxycodone Ir 5 Mg Tablet) 5 mg PO Q3H PRN PRN Reason: Pain, Moderate (4-6) Oxycodone HCl (Oxycodone Ir 10 Mg Tablet) 10 mg PO Q3H PRN PRN Reason: Pain, Severe (7-10) Sennosides (Sennosides 8.6 Mg Tablet) 17.2 mg PO BID FOR[facility]LY [facility], [facility]1983 Discontinued Medications Gabapentin (Gabapentin 300 Mg Capsule) 300 mg PO NOW ONE Stop: 09/12/23 20:09 Last Admin: 09/12/23 20:30 Dose: 300 mg Documented By: JEANNIE Ceftriaxone Sodium 2,000 mg/ (Sodium Chloride) 100 mls @ 200 mls/hr IV NOW ONE Stop: 09/12/23 19:45 Last Infusion: 09/12/23 20:30 Dose: Infused Documented By: Admin: 09/12/23 19:51 Dose: 200 mls/hr Documented By: JEANNIE Oxycodone HCl (Oxycodone Ir 5 Mg Tablet) 10 mg PO NOW ONE Stop: 09/12/23 20:09 Last Admin: 09/12/23 20:30 Dose: 10 mg Documented By: JEANNIE Vital Signs Vital signs: Vital Signs - 8 hr 09/12/23 19:37 09/12/23 20:04 09/12/23 21:04 Temperature 100.7 F H Pulse Rate 89 92 H 85 Respiratory Rate 14 20 14 Blood Pressure 132/66 123/67 117/63 Pulse Oximetry 95 95 94 Oxygen Delivery Method Room Air Room Air Room Air 09/12/23 21:41 09/12/23 21:42 09/12/23 21:42 Temperature Pulse Rate 80 80 Respiratory Rate 14 12 Blood Pressure 119/66 Pulse Oximetry 93 94 Oxygen Delivery Method 09/12/23 22:00 09/12/23 22:00 09/12/23 22:09 Temperature 100.9 F H Pulse Rate 81 95 H Respiratory Rate 17 16 Blood Pressure 120/73 120/73 Pulse Oximetry 95 Oxygen Delivery Method 09/12/23 22:16 09/12/23 22:20 09/12/23 22:20 Temperature 100.1 F H Pulse Rate 79 79 Respiratory Rate 12 12 Blood Pressure 120/73 120/69 Pulse Oximetry 93 Oxygen Delivery Method 09/12/23 22:24 09/12/23 22:25 09/12/23 22:25 Temperature 99.9 F H Pulse Rate 78 78 Respiratory Rate 18 13 Blood Pressure 120/69 116/69 Pulse Oximetry 95 95 Oxygen Delivery Method Room Air 09/12/23 22:30 09/12/23 22:30 09/12/23 22:30 Temperature 99.9 F H Pulse Rate 80 80 Respiratory Rate 14 15 Blood Pressure 117/71 116/72 Pulse Oximetry 95 Oxygen Delivery Method 09/12/23 22:31 09/12/23 22:31 09/12/23 22:40 Temperature Pulse Rate 80 Respiratory Rate 14 Blood Pressure 117/71 113/68 Pulse Oximetry 94 Oxygen Delivery Method 09/12/23 22:40 09/12/23 22:50 09/12/23 22:50 Temperature Pulse Rate 77 76 Respiratory Rate 14 12 Blood Pressure 111/65 Pulse Oximetry 96 91 Oxygen Delivery Method 09/12/23 23:00 09/12/23 23:00 09/12/23 23:05 Temperature Pulse Rate 80 99 H Respiratory Rate 13 22 Blood Pressure 115/63 115/63 Pulse Oximetry 96 95 Oxygen Delivery Method Room Air 09/12/23 23:10 09/12/23 23:10 09/12/23 23:20 Temperature Pulse Rate 80 Respiratory Rate 13 Blood Pressure 130/74 117/61 Pulse Oximetry 95 Oxygen Delivery Method 09/12/23 23:20 09/12/23 23:30 09/12/23 23:30 Temperature Pulse Rate 73 72 Respiratory Rate 12 12 Blood Pressure 111/61 Pulse Oximetry 92 94 Oxygen Delivery Method 09/12/23 23:40 09/12/23 23:40 Temperature Pulse Rate 80 Respiratory Rate 16 Blood Pressure 118/65 Pulse Oximetry 96 Oxygen Delivery Method Sepsis Evaluation (ED) Level 1 - Infection Sepsis Infection Criteria Present: Documented Infection Level 2 - SIRS Sepsis SIRS Criteria Present: WBC < 4k or > 12k or Bands > 10% and Pulse > 90 bpm Response It is my opinion that his patient have a likely infectious etiology for meeting sepsis criteria: Does Fluid calculation based on 30 mL/kg within 1hr of criteria: Other Antibiotics initiated within 1 hr of Sepis dx: Yes Tissue Perfusion Reassessed within 6 hrs of infusion start time: Yes Date of Tissue Perfusion Reassessment completed: 09/12/23 Time Tissue Perfusion Reassessment completed: 21:00 MDM - Sepsis Lab Data 09/12/23 19:45 09/12/23 19:45 Labs: Lab Results 09/12/23 09/12/23 09/12/23 Range/Units 19:45 20:02 20:33 WBC 2.6 L (4.5-11.0) X10^3/uL RBC 2.05 L (4.5-5.9) X10^6/uL Hgb 6.6 L* (13.5-17.5) g/dL Hct 19.2 L* (41-53) % MCV 93.6 D (80-100) fL MCH 32.1 (26-34) PG MCHC 34.3 (30-36) % RDW 16.1 H (11.6-14.8) % Plt Count 20 L* (150-400) X10^3/uL Neut % (Auto) 68.9 (50-75) % Lymph % (Auto) 20.3 L (25-40) % [place] % (Auto) 8.5 (3-14) % Eos % (Auto) 1.6 L (2-4) % Baso % (Auto) 0.7 (0-2) % Neut # (Auto) 1800 (4443-3596) /uL Lymph # (Auto) 500 L (9511-0266) /uL [place] # (Auto) 200 (0-900) /uL Eos # (Auto) 0 (0-450) /uL Baso # (Auto) 0 (0-100) /uL RBC Morphology See below Anisocytosis 1+ H Percent Retic 2.5 (0.9-2.6) % PT 14.8 H (9.4-12.5) SECONDS INR 1.3 (0.9-1.3) APTT 33 (25.1-36.5) SECONDS Sodium 130 L (137-145) mmol/L Potassium 4.5 (3.4-5.1) mmol/L Chloride 105 (98-107) mmol/L Carbon Dioxide 22 (22-32) mmol/L BUN 21 H (9-20) mg/dL Creatinine 0.94 (0.66-1.25) mg/dL Estimated GFR > 60 (>60) mL/min BUN/Creatinine Ratio 22.3 H (6-22) Glucose 98 (80-110) mg/dL Lactate 1.2 (0.7-2.1) mmol/L Calcium 7.8 L (8.4-10.2) mg/dL Total Bilirubin 1.0 (0.2-1.3) mg/dL AST 365 H (17-59) IU/L ALT 15 (<50) IU/L Alkaline Phosphatase 96 (38-126) U/L Total Creatine Kinase 365 H (55-170) U/L Troponin I 0.040 H (0.01-0.034) ng/mL Total Protein 5.5 L (6.3-8.2) g/dL Albumin 3.0 L (3.5-5.0) g/dL Globulin 2.5 (1.7-4.1) g/dL Albumin/Globulin Ratio 1.2 (1.0-2.8) Procalcitonin 0.475 (<0.5) ng/mL Urine Color Yellow Urine Appearance Clear Urine pH 8.5 H (4.5-8.0) Ur Specific [place] 1.010 (1.000-1.035) Urine Protein Trace H (Negative) Urine Glucose (UA) Negative (Negative) g/dL Urine Ketones Negative (NEGATIVE) Urine Occult Blood 1+ H (Negative) Urine Nitrate Negative (Negative) Urine Bilirubin Negative (NEGATIVE) Urine Urobilinogen 0.2 (0.2) E.U./dL Ur Leukocyte Esterase Negative (NEGATIVE) Urine RBC 0-1/hpf D (0-5/HPF) Urine WBC None seen (0-5/HPF) Ur Squamous Epith Cells 0-1 /hpf (0-5/HPF) Urine Bacteria None seen (None) Ur Culture Indicated? Cult not indicated Vol Urine Centrifuged 10ml (spun) Chlamy pneumoniae PCR Not detected (Not Detect) Adenovirus (PCR) Not detected (Not Detect) B.parapertussis DNA PCR Not detected (Not Detecte) Coronavirus OC43 (PCR) Not detected (Not Detect) Coronavirus HKU1 (PCR) Not detected (Not Detect) Coronavirus 229E (PCR) Not detected (Not Detect) SARS-CoV-2 (PCR) Not detected (Not Detecte) Coronavirus NL63 (PCR) Not detected (Not Detect) Human Metapneumovir PCR Not detected (Not Detect) Influenza Type A (PCR) Not detected (Not Detect) Influenza Type B (PCR) Not detected (Not Detect) M. pneumoniae (PCR) Not detected (Not Detect) Parainfluenza 1 (PCR) Not detected (Not Detect) Parainfluenza 2 (PCR) Not detected (Not Detect) Parainfluenza 3 (PCR) Not detected (Not Detect) Parainfluenza 4 (PCR) Not detected (Not Detect) RSV (PCR) Not detected (Not Detect) Entero/Rhino (PCR) Not detected (Not Detect) Blood Type Antibody Screen Crossmatch 09/12/23 Range/Units 21:14 WBC (4.5-11.0) X10^3/uL RBC (4.5-5.9) X10^6/uL Hgb (13.5-17.5) g/dL Hct (41-53) % MCV (80-100) fL MCH (26-34) PG MCHC (30-36) % RDW (11.6-14.8) % Plt Count (150-400) X10^3/uL Neut % (Auto) (50-75) % Lymph % (Auto) (25-40) % [place] % (Auto) (3-14) % Eos % (Auto) (2-4) % Baso % (Auto) (0-2) % Neut # (Auto) (0486-5697) /uL Lymph # (Auto) (1898-0124) /uL [place] # (Auto) (0-900) /uL Eos # (Auto) (0-450) /uL Baso # (Auto) (0-100) /uL RBC Morphology Anisocytosis Percent Retic (0.9-2.6) % PT (9.4-12.5) SECONDS INR (0.9-1.3) APTT (25.1-36.5) SECONDS Sodium (137-145) mmol/L Potassium (3.4-5.1) mmol/L Chloride (98-107) mmol/L Carbon Dioxide (22-32) mmol/L BUN (9-20) mg/dL Creatinine (0.66-1.25) mg/dL Estimated GFR (>60) mL/min BUN/Creatinine Ratio (6-22) Glucose (80-110) mg/dL Lactate (0.7-2.1) mmol/L Calcium (8.4-10.2) mg/dL Total Bilirubin (0.2-1.3) mg/dL AST (17-59) IU/L ALT (<50) IU/L Alkaline Phosphatase (38-126) U/L Total Creatine Kinase (55-170) U/L Troponin I (0.01-0.034) ng/mL Total Protein (6.3-8.2) g/dL Albumin (3.5-5.0) g/dL Globulin (1.7-4.1) g/dL Albumin/Globulin Ratio (1.0-2.8) Procalcitonin (<0.5) ng/mL Urine Color Urine Appearance Urine pH (4.5-8.0) Ur Specific [place] (1.000-1.035) Urine Protein (Negative) Urine Glucose (UA) (Negative) g/dL Urine Ketones (NEGATIVE) Urine Occult Blood (Negative) Urine Nitrate (Negative) Urine Bilirubin (NEGATIVE) Urine Urobilinogen (0.2) E.U./dL Ur Leukocyte Esterase (NEGATIVE) Urine RBC (0-5/HPF) Urine WBC (0-5/HPF) Ur Squamous Epith Cells (0-5/HPF) Urine Bacteria (None) Ur Culture Indicated? Vol Urine Centrifuged Chlamy pneumoniae PCR (Not Detect) Adenovirus (PCR) (Not Detect) B.parapertussis DNA PCR (Not Detecte) Coronavirus OC43 (PCR) (Not Detect) Coronavirus HKU1 (PCR) (Not Detect) Coronavirus 229E (PCR) (Not Detect) SARS-CoV-2 (PCR) (Not Detecte) Coronavirus NL63 (PCR) (Not Detect) Human Metapneumovir PCR (Not Detect) Influenza Type A (PCR) (Not Detect) Influenza Type B (PCR) (Not Detect) M. pneumoniae (PCR) (Not Detect) Parainfluenza 1 (PCR) (Not Detect) Parainfluenza 2 (PCR) (Not Detect) Parainfluenza 3 (PCR) (Not Detect) Parainfluenza 4 (PCR) (Not Detect) RSV (PCR) (Not Detect) Entero/Rhino (PCR) (Not Detect) Blood Type A Positive Antibody Screen Negative Crossmatch See Detail Imaging Data Chest x-ray: Radiologist's Impression: PROCEDURE: XR CHEST 1V INDICATIONS: sepsis, hypoxia TECHNIQUE: One view of the chest was acquired. COMPARISON: [facility], CR, XR CHEST 1V, 09/08/2023, 22:04. FINDINGS: Surgical changes and devices: Left chest port catheter with distal tip projecting over the lower SVC. Lungs and pleura: Persistent mild left base opacity. Probable trace left pleural effusion. No pneumothorax. Mediastinum: Mediastinal contours appear normal. Heart size is normal. Bones and chest wall: No suspicious bony lesions. Overlying soft tissues appear unremarkable. IMPRESSION: Compared to prior radiograph on 09/08/2023, left lung base opacity persists. Probable trace left pleural effusion. Approved by: Awa Saleem M.D.,Ph.D. on 09/12/2023 at 20:11 CT scan - chest: Radiologist's Impression: PROCEDURE: CT CHEST W CON INDICATIONS: peristent L lung opacity, hx metastatic prostate ca TECHNIQUE: After the administration of intravenous contrast, 5 mm thick sections acquired from the pulmonary apices to the posterior costophrenic angles. 1 mm axial lung, 5 mm thick coronal and sagittal reformats and 7 mm axial MIP were acquired. For radiation dose reduction, the following was used: automated exposure control, adjustment of mA and/or kV according to patient size. COMPARISON: None. FINDINGS: Image quality: Diagnostic. Lower Neck: No enlarged lymph nodes. Thyroid: No thyroid nodules which require sonographic follow up, per consensus guidelines. Axillae: No enlarged lymph nodes. Chest Wall: Left chest wall port catheter.. Bones: Diffuse sclerotic osseous metastases throughout the visualized spine, sternum and bilateral ribs. No acute fracture... Lungs and Pleura: No pneumothorax. Small bilateral pleural effusions with subjacent atelectasis. There are 2 right upper lobe 1.1 cm ground-glass nodules (3/179), new since 07/25/2023. Lingular atelectasis. Heart: Heart size is normal. No pericardial effusion. Thoracic Vessels: The aorta and pulmonary arteries demonstrate normal size. Left chest wall port catheter terminates in the right atrium. Mediastinum and Haily: No enlarged lymph nodes. Esophagus: No wall thickening. No hiatal hernia. Upper Abdomen: New hypodensities in the right hepatic lobe, for example series 2, image 61. IMPRESSION: Small bilateral pleural effusion with subjacent atelectasis. Lingular atelectasis. Approved by: Awa Saleem M.D.,Ph.D. on 09/12/2023 at 22:06 Right upper lobe 1.1 cm ground-glass nodules, new since 07/25/2023. Findings are determinate. Continued attention on follow-up imaging. Low attenuating lesions in the right hepatic lobe, new since 07/25/2023. Findings are concerning for metastasis. Diffuse sclerotic osseous metastasis in the appendicular and axial skeleton. MDM Narrative Medical decision making narrative: Chronically unwell appearing patient presenting for recurrent fever with recent urinary tract infection treated with IV antibiotics. Discharged on cefdinir, which patient has been compliant with taking. Record review shows that patient had Citrobacter in his urine sensitive to 3rd generation cephalosporins. Repeat blood cultures and blood work sent to lab. IV Rocephin ordered for coverage. Due to recent anemia type and screen sent to lab. Patient was not on blood thinners and has had no bleeding. Laboratory work shows WBC count 2.6, hemoglobin 6.6, platelet count 20, sodium 130, potassium 4.5, creatinine 0.94, AST 365, ALT 15, troponin 0.040, procalcitonin 0.475. Troponin not grossly changed from previous, likely secondary to demand from profound anemia and infection. AST elevation nonspecific, however this is a new finding. EKG shows no acute ischemic findings. Chest x-ray shows possible left-sided infiltrate, also seen previously on chest x-ray taken 09/08/2023. With history of metastatic cancer and recurrent fever a CT of the chest will be ordered for further assessment. Patient is case discussed with Heme-Onc Dr. Ring at [facility] to discuss if patient would need transfer for additional Heme-Onc evaluation in the hospital. ANC not consistent with true neutropenic fever. Per [facility] record review, patient has had progressively worsening pancytopenia following his radiation treatments in June and this is thought to be secondary to the radiation. In August of 2023 patient's hemoglobin was 7.9 and platelets were 69. Recommended red blood cell transfusion as needed for anemia with goal greater than 7 and transfusion of platelets for goal greater than 20 at discharge. No indication for emergent transfer, patient could be considered for bone marrow transplant in the future if desired. Unable to obtain LDH level due to not functioning machine. Reticulocyte count within normal limits. Case discussed with patient as well as son at bedside, who is an orthopedic surgeon. They are in agreement with admission at this time. Critical Care Time Critical Care Time Critical Care Time: Yes Total Critical Care Time: 43 Attestation: Anemia requiring transfusion, pancytopenia, recurrent fever concerning for possible sepsis. Discussion with Heme-Onc Discharge Plan Departure Patient Disposition: Admitted as Observation Clinical Impression: Anemia requiring transfusions, Thrombocytopenia, Fever Admit Date/Time: 09/12/23 23:45 Admit Provider: Cesar Weaver
[2023-09-12] MEDS: cefTRIAXone 2,000 MG in SODIUM CHLORIDE 0.9% 100 ML 200 MG IV (19:51)
--- NOTE | 2023-09-12 20:14 | EKG_ITS ---
[address] [address] Test Date: 2023-09-12 Pat Name: Alexander Duran Department: 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
[2023-09-12 20:20] LABS: Basophils Absolute Auto 0 /uL (0-100); Basophils Percent Auto 0.7 % (0-2); Eosinophils Absolute Auto 0 /uL (0-450); Eosinophils Percent Auto 1.6 % (2-4); Lymphocytes Absolute Auto 500 /uL (1100-4500); Lymphocytes Percent Auto 20.3 % (25-40); Mean Corpuscular HGB Conc 34.3 % (30-36); Mean Corpuscular Hemoglobin 32.1 PG (26-34); Mean Corpuscular Volume 93.6 fL (80-100); Monocytes Absolute Auto 200 /uL (0-900); Monocytes Percent Auto 8.5 % (3-14); Neutrophils Absolute Auto 1800 /uL (1500-7000); Neutrophils Percent Auto 68.9 % (50-75); Red Blood Cell Count 2.05 X10^6/uL (4.5-5.9); Red Cell Distribution Width 16.1 % (11.6-14.8); White Blood Cell Count 2.6 X10^3/uL (4.5-11.0)
[2023-09-12 20:22] LABS: Hemoglobin 6.6 g/dL (13.5-17.5)
[2023-09-12 20:23] LABS: Add Manual Diff / Slide Review SLIDE REVIEW; Hematocrit 19.2 % (41-53); Platelet Count 20 X10^3/uL (150-400)
[2023-09-12 20:24] LABS: INR 1.3 (0.9-1.3); Prothrombin Time 14.8 SECONDS (9.4-12.5)
[2023-09-12 20:29] LABS: Alanine Aminotransferase 15 IU/L (<50); Albumin Globulin Ratio 1.2 (1.0-2.8); Alkaline Phosphatase 96 U/L (38-126); Aspartate Aminotransferase 365 IU/L (17-59); BUN Creatinine Ratio 22.3 (6-22); Blood Urea Nitrogen 21 mg/dL (9-20); Calcium 7.8 mg/dL (8.4-10.2); Carbon Dioxide 22 mmol/L (22-32); Chloride 105 mmol/L (98-107); Creatine Kinase 365 U/L (55-170); Estimated Glomerular Filt Rate > 60 mL/min (>60); Globulin 2.5 g/dL (1.7-4.1); Glucose 98 mg/dL (80-110); HEMOLYSIS < 15 (0-50); Lactate (Lactic Acid) 1.2 mmol/L (0.7-2.1); Potassium 4.5 mmol/L (3.4-5.1); Sodium 130 mmol/L (137-145); Total Protein 5.5 g/dL (6.3-8.2)
[2023-09-12] MEDS: GABAPENTIN 300 MG CAPSULE PO (20:30)
[2023-09-12] MEDS: OXYCODONE IR 5 MG TABLET 10 MG PO (20:30)
[2023-09-12 20:31] LABS: PTT Partial Thromboplastin Tim 33 SECONDS (25.1-36.5)
[2023-09-12 20:46] LABS: Procalcitonin 0.475 ng/mL (<0.5)
[2023-09-12 20:50] LABS: Anisocytosis 1+
[2023-09-12 20:58] LABS: Adenovirus Not Detected (Not Detect); B. parapertussis Not Detected (Not Detecte); Bordetella pertussis Not Detected (Not Detect); Chlamydophila pneumoniae Not Detected (Not Detect); Coronavirus 229E Not Detected (Not Detect); Coronavirus HKU1 Not Detected (Not Detect); Coronavirus NL 63 Not Detected (Not Detect); Coronavirus OC43 Not Detected (Not Detect); Human Metapneumovirus Not Detected (Not Detect); Human Rhinovirus/Enterovirus Not Detected (Not Detect); Influenza A Not Detected (Not Detect); Influenza B Not Detected (Not Detect); Mycoplasma pneumoniae Not Detected (Not Detect); Parainfluenza Virus 1 Not Detected (Not Detect); Parainfluenza Virus 2 Not Detected (Not Detect); Parainfluenza Virus 3 Not Detected (Not Detect); Parainfluenza Virus 4 Not Detected (Not Detect); Respiratory Syncytial Virus Not Detected (Not Detect); SARS- CoV-2 Not Detected (Not Detecte)
--- NOTE | 2023-09-12 21:03 | DI.CT.S_ITS ---
PROCEDURE: CT CHEST W CON INDICATIONS: peristent L lung opacity, hx metastatic prostate ca TECHNIQUE: After the administration of intravenous contrast, 5 mm thick sections acquired from the pulmonary apices to the posterior costophrenic angles. 1 mm axial lung, 5 mm thick coronal and sagittal reformats and 7 mm axial MIP were acquired. For radiation dose reduction, the following was used: automated exposure control, adjustment of mA and/or kV according to patient size. COMPARISON: None. FINDINGS: Image quality: Diagnostic. Lower Neck: No enlarged lymph nodes. Thyroid: No thyroid nodules which require sonographic follow up, per consensus guidelines. Axillae: No enlarged lymph nodes. Chest Wall: Left chest wall port catheter.. Bones: Diffuse sclerotic osseous metastases throughout the visualized spine, sternum and bilateral ribs. No acute fracture... Lungs and Pleura: No pneumothorax. Small bilateral pleural effusions with subjacent atelectasis. There are 2 right upper lobe 1.1 cm ground-glass nodules (3/179), new since 07/25/2023. Lingular atelectasis. Heart: Heart size is normal. No pericardial effusion. Thoracic Vessels: The aorta and pulmonary arteries demonstrate normal size. Left chest wall port catheter terminates in the right atrium. Mediastinum and Haily: No enlarged lymph nodes. Esophagus: No wall thickening. No hiatal hernia. Upper Abdomen: New hypodensities in the right hepatic lobe, for example series 2, image 61. IMPRESSION: Small bilateral pleural effusion with subjacent atelectasis. Lingular atelectasis. Approved by: Awa Saleem M.D.,Ph.D. on 09/12/2023 at 22:06 Right upper lobe 1.1 cm ground-glass nodules, new since 07/25/2023. Findings are determinate. Continued attention on follow-up imaging. Low attenuating lesions in the right hepatic lobe, new since 07/25/2023. Findings are concerning for metastasis. Diffuse sclerotic osseous metastasis in the appendicular and axial skeleton.
[2023-09-12 21:08] LABS: Appearance Urine UA CLEAR; Bilirubin Urine UA NEGATIVE (NEGATIVE); Color Urine UA YELLOW; Glucose Urine UA NEGATIVE (Negative); Ketones Urine UA NEGATIVE (NEGATIVE); Leukocyte Esterase Urine UA NEGATIVE (NEGATIVE); Nitrite Urine UA NEGATIVE (Negative); Occult Blood Urine UA 1+ (Negative); Protein Urine UA TRACE (Negative); Urobilinogen Urine UA 0.2 E.U./dL (0.2); pH Urine UA 8.5 (4.5-8.0)
[2023-09-12 21:21] LABS: Bacteria Urine None Seen; Culture Indicated Urine Cult Not Indicated; RBC Urine 0-1/HPF (0-5/HPF); Squamous Epithelial Cell Urine 0-1 /HPF (0-5/HPF); Urine Volume 10mL (spun); WBC Urine None Seen (0-5/HPF)
[2023-09-12 23:11] LABS: Reticulocyte Count, Percent 2.5 % (0.9-2.6)
[2023-09-13] VITALS (16 sets, daily range): BP systolic 109–132; BP diastolic 62–79; PULSE 70–87; RESP 11–16; TEMP 36.6–39; O2SAT 92–96; BMI 20.7
--- NOTE | 2023-09-13 00:16 | PM.HP.1 ---
History of Present Illness History of Present Illness Date Patient Seen: 09/13/23 Time Patient Seen: 02:00 Chief complaint: Sepsis concerns Narrative: 78 years old male with a past medical history of metastatic prostate carcinoma and recent admission with UTI and sepsis after recent placement of indwelling catheter for urinary obstruction, with pancytopenia that required PRBC and Plt transfusion. Discharged home 2 days ago on Cefdinir and UC in the meantime grew sensitive Citrobacter. He felt better at home until he spiked fever today which brought him back. He feels little lightheaded when stoods up, denies chills, abdominal pain, chest pain, shortness of breath. He deferred some of the questions to his who will be visiting tomorrow. In addition, worsening counts in comparison to CBC from 2 days ago, qualifies for PRBC transfusion. Placed in observation for IV abx, PRBC transfusion PFSH Medical History Androgen deprivation therapy History of radiation therapy Frequency of micturition Urinary urgency Nocturia Lower urinary tract symptoms Hx of closed dislocation of shoulder Hx of prostatic malignancy Hx of renal calculi Surgical History Hx of bilateral inguinal hernia repair Hx of prostate biopsy Hx of circumcision Hx of prostatectomy Family History Mother Cancer Sister Cancer Social History marital status: household members: spouse Smoking Status: Never smoker alcohol intake: former caffeine: Yes Type(s) of exercise: bicycling frequency: 1-2 times per week duration: 45-60 minutes/day Meds Home Medications and Allergies Home Medications Medication Instructions Recorded Confirmed Type bisacodyl 10 mg rectal suppository 10 mg [place] DAILY 09/09/23 09/13/23 History cholecalciferol (vitamin D3) 25 25 mcg PO DAILY 09/09/23 09/13/23 History mcg (1,000 unit) tablet (Vitamin D3) gabapentin 300 mg capsule 300 mg PO 2XD 09/09/23 09/13/23 History multivitamin with minerals 1 cap PO DAILY 09/09/23 09/13/23 History oxycodone 5 mg tablet 10 mg PO Q8H PRN severe pain 09/09/23 09/13/23 History rosuvastatin 5 mg tablet 5 mg PO BEDTIME 09/09/23 09/13/23 History sennosides 8.6 mg tablet (senna) 17.2 mg PO BID 09/09/23 09/13/23 History cefdinir 300 mg capsule 300 mg PO BID 7 days #14 caps 09/10/23 09/13/23 Rx dronabinol 2.5 mg capsule 2.5 mg PO BID 15 days #30 caps 09/10/23 09/13/23 Rx Allergies Allergy/AdvReac Type Severity Reaction Status Date / Time No Known Drug Allergies Allergy Verified 04/11/21 15:09 Review of Systems Review of Systems Narrative: Fever today Generalized weakness ENT Comments: w/o congestion Cardiovascular Comments: w/o chest pain or palpitations Respiratory Comments: w/o cough or shortness of breath Gastrointestinal Comments: w/o abdominal pain Genitourinary Comments: w/o dysuria, tolerates indwelling catheter, w/o blood in the urine Musculoskeletal Comments: right arm pain Exam Vital Signs (past 8 hours): - 09/12/23 19:37 09/12/23 20:04 09/12/23 21:04 Temperature 100.7 F H Pulse Rate 89 92 H 85 Respiratory Rate 14 20 14 Blood Pressure 132/66 123/67 117/63 Pulse Oximetry 95 95 94 Oxygen Delivery Method Room Air Room Air Room Air 09/12/23 21:41 09/12/23 21:42 09/12/23 21:42 Temperature Pulse Rate 80 80 Respiratory Rate 14 12 Blood Pressure 119/66 Pulse Oximetry 93 94 Oxygen Delivery Method 09/12/23 22:00 09/12/23 22:00 09/12/23 22:09 Temperature 100.9 F H Pulse Rate 81 95 H Respiratory Rate 17 16 Blood Pressure 120/73 120/73 Pulse Oximetry 95 Oxygen Delivery Method 09/12/23 22:16 09/12/23 22:20 09/12/23 22:20 Temperature 100.1 F H Pulse Rate 79 79 Respiratory Rate 12 12 Blood Pressure 120/73 120/69 Pulse Oximetry 93 Oxygen Delivery Method 09/12/23 22:24 09/12/23 22:25 09/12/23 22:25 Temperature 99.9 F H Pulse Rate 78 78 Respiratory Rate 18 13 Blood Pressure 120/69 116/69 Pulse Oximetry 95 95 Oxygen Delivery Method Room Air 09/12/23 22:30 09/12/23 22:30 09/12/23 22:30 Temperature 99.9 F H Pulse Rate 80 80 Respiratory Rate 14 15 Blood Pressure 117/71 116/72 Pulse Oximetry 95 Oxygen Delivery Method 09/12/23 22:31 09/12/23 22:31 09/12/23 23:05 Temperature Pulse Rate 80 99 H Respiratory Rate 14 22 Blood Pressure 117/71 115/63 Pulse Oximetry 94 95 Oxygen Delivery Method Room Air 09/12/23 23:53 Temperature 99.6 F Pulse Rate 73 Respiratory Rate 16 Blood Pressure 116/69 Pulse Oximetry Oxygen Delivery Method Oxygen Delivery Method Room Air Const Other: sitting in bed in no distress HENMT Other: normocephalic Resp Other: normal respiratory effort Cardio Other: RRR GI Other: not tender or distended Other: Fernandez in place, clear urine Skin Other: w/o jaundice Extrem Other: w/o swelling Psych Other: appropriate mood, lucid Objective Labs 09/12/23 19:45 09/12/23 19:45 Labs: Laboratory Results - last 24 hr 09/12/23 09/12/23 09/12/23 19:45 20:02 20:33 WBC 2.6 L RBC 2.05 L Hgb 6.6 L* Hct 19.2 L* MCV 93.6 D MCH 32.1 MCHC 34.3 RDW 16.1 H Plt Count 20 L* Neut % (Auto) 68.9 Lymph % (Auto) 20.3 L [place] % (Auto) 8.5 Eos % (Auto) 1.6 L Baso % (Auto) 0.7 Neut # (Auto) 1800 Lymph # (Auto) 500 L [place] # (Auto) 200 Eos # (Auto) 0 Baso # (Auto) 0 RBC Morphology See below Anisocytosis 1+ H Percent Retic 2.5 PT 14.8 H INR 1.3 APTT 33 Sodium 130 L Potassium 4.5 Chloride 105 Carbon Dioxide 22 BUN 21 H Creatinine 0.94 Estimated GFR > 60 BUN/Creatinine Ratio 22.3 H Glucose 98 Lactate 1.2 Calcium 7.8 L Total Bilirubin 1.0 AST 365 H ALT 15 Alkaline Phosphatase 96 Total Creatine Kinase 365 H Troponin I 0.040 H Total Protein 5.5 L Albumin 3.0 L Globulin 2.5 Albumin/Globulin Ratio 1.2 Procalcitonin 0.475 Urine Color Yellow Urine Appearance Clear Urine pH 8.5 H Ur Specific [place] 1.010 Urine Protein Trace H Urine Glucose (UA) Negative Urine Ketones Negative Urine Occult Blood 1+ H Urine Nitrate Negative Urine Bilirubin Negative Urine Urobilinogen 0.2 Ur Leukocyte Esterase Negative Urine RBC 0-1/hpf D Urine WBC None seen Ur Squamous Epith Cells 0-1 /hpf Urine Bacteria None seen Ur Culture Indicated? Cult not indicated Vol Urine Centrifuged 10ml (spun) Chlamy pneumoniae PCR Not detected Adenovirus (PCR) Not detected B.parapertussis DNA PCR Not detected Coronavirus OC43 (PCR) Not detected Coronavirus HKU1 (PCR) Not detected Coronavirus 229E (PCR) Not detected SARS-CoV-2 (PCR) Not detected Coronavirus NL63 (PCR) Not detected Human Metapneumovir PCR Not detected Influenza Type A (PCR) Not detected Influenza Type B (PCR) Not detected M. pneumoniae (PCR) Not detected Parainfluenza 1 (PCR) Not detected Parainfluenza 2 (PCR) Not detected Parainfluenza 3 (PCR) Not detected Parainfluenza 4 (PCR) Not detected RSV (PCR) Not detected Entero/Rhino (PCR) Not detected Blood Type Antibody Screen Crossmatch 09/12/23 21:14 WBC RBC Hgb Hct MCV MCH MCHC RDW Plt Count Neut % (Auto) Lymph % (Auto) [place] % (Auto) Eos % (Auto) Baso % (Auto) Neut # (Auto) Lymph # (Auto) [place] # (Auto) Eos # (Auto) Baso # (Auto) RBC Morphology Anisocytosis Percent Retic PT INR APTT Sodium Potassium Chloride Carbon Dioxide BUN Creatinine Estimated GFR BUN/Creatinine Ratio Glucose Lactate Calcium Total Bilirubin AST ALT Alkaline Phosphatase Total Creatine Kinase Troponin I Total Protein Albumin Globulin Albumin/Globulin Ratio Procalcitonin Urine Color Urine Appearance Urine pH Ur Specific [place] Urine Protein Urine Glucose (UA) Urine Ketones Urine Occult Blood Urine Nitrate Urine Bilirubin Urine Urobilinogen Ur Leukocyte Esterase Urine RBC Urine WBC Ur Squamous Epith Cells Urine Bacteria Ur Culture Indicated? Vol Urine Centrifuged Chlamy pneumoniae PCR Adenovirus (PCR) B.parapertussis DNA PCR Coronavirus OC43 (PCR) Coronavirus HKU1 (PCR) Coronavirus 229E (PCR) SARS-CoV-2 (PCR) Coronavirus NL63 (PCR) Human Metapneumovir PCR Influenza Type A (PCR) Influenza Type B (PCR) M. pneumoniae (PCR) Parainfluenza 1 (PCR) Parainfluenza 2 (PCR) Parainfluenza 3 (PCR) Parainfluenza 4 (PCR) RSV (PCR) Entero/Rhino (PCR) Blood Type A Positive Antibody Screen Negative Crossmatch See Detail Assessment & Plan Assessment and plan (1) Urinary tract infection: Status: Acute (2) Prostate carcinoma: Status: Acute (3) Generalized weakness: Status: Acute (4) Anemia: Status: Acute (5) Thrombocytopenia: Status: Acute Assessment & Plan narrative: Metastatic Prostate Carcinoma - currently on no therapies, pain management, indwelling catheter UTI - septic on prior admission - BCs still w/o growth, UC grew sensitive Citrobacter - spiked fever today, BCs re-drawn in ED - Rocephin Pancytopenia - from recent palliative radiation therapy - PRBC x 1 - no need for Plt transfusion as long as count > 10,000 Generalized Weakness, Poor Appetite - supportive care, Dronabinole DVT prophylaxis - SCDs Time-Based Coding :: [TOTAL MINUTES] spent with patient and on the chart (including review of chart, obtaining history, exam, reviewing outside data, placing orders, documenting exam and treatment plan, and counseling patient) on [DATE].
[2023-09-13] MEDS: GABAPENTIN 300 MG CAPSULE PO ×3 (01:41→20:34)
[2023-09-13] MEDS: ACETAMINOPHEN 325 MG TABLET 650 MG PO ×2 (01:41→17:31)
[2023-09-13 06:28] LABS: Add Manual Diff / Slide Review NO; Basophils Absolute Auto 0 /uL (0-100); Basophils Percent Auto 0.6 % (0-2); Eosinophils Absolute Auto 0 /uL (0-450); Eosinophils Percent Auto 1.7 % (2-4); Lymphocytes Absolute Auto 400 /uL (1100-4500); Lymphocytes Percent Auto 17.8 % (25-40); Mean Corpuscular HGB Conc 34.8 % (30-36); Mean Corpuscular Hemoglobin 30.9 PG (26-34); Mean Corpuscular Volume 88.7 fL (80-100); Monocytes Absolute Auto 200 /uL (0-900); Monocytes Percent Auto 7.7 % (3-14); Neutrophils Absolute Auto 1700 /uL (1500-7000); Neutrophils Percent Auto 72.2 % (50-75); Red Cell Distribution Width 16.9 % (11.6-14.8); White Blood Cell Count 2.4 X10^3/uL (4.5-11.0)
[2023-09-13 06:32] LABS: Hematocrit 19.6 % (41-53); Hemoglobin 6.8 g/dL (13.5-17.5); Platelet Count 18 X10^3/uL (150-400)
[2023-09-13 06:36] LABS: BUN Creatinine Ratio 20.7 (6-22); Blood Urea Nitrogen 18 mg/dL (9-20); Calcium 7.5 mg/dL (8.4-10.2); Carbon Dioxide 23 mmol/L (22-32); Chloride 108 mmol/L (98-107); Estimated Glomerular Filt Rate > 60 mL/min (>60); Glucose 93 mg/dL (80-110); HEMOLYSIS < 15 (0-50); Potassium 4.1 mmol/L (3.4-5.1); Sodium 132 mmol/L (137-145)
[2023-09-13] MEDS: OXYCODONE IR 5 MG TABLET PO (06:43)
[2023-09-13 06:53] LABS: Anisocytosis 1+; Platelet Estimate Decreased on smear; Schistocytes 1+
--- NOTE | 2023-09-13 08:16 | P.HP_ITS ---
History of Present Illness History of Present Illness Chief complaint: Sepsis concerns Narrative: From night doctor: 78 years old male with a past medical history of metastatic prostate carcinoma and recent admission with UTI and sepsis after recent placement of indwelling catheter for urinary obstruction, with pancytopenia that required PRBC and Plt transfusion. Discharged home 2 days ago on Cefdinir and UC in the meantime grew sensitive Citrobacter. He felt better at home until he spiked fever today which brought him back. He feels little lightheaded when stoods up, denies chills, abdominal pain, chest pain, shortness of breath. He deferred some of the questions to his who will be visiting tomorrow. In addition, worsening counts in comparison to CBC from 2 days ago, qualifies for PRBC transfusion. Placed in observation for IV abx, PRBC transfusion S: Met with patient, his , and a close friend who has a site reliability engineer, as well as his son. The patient was quite clear that he has no other options and is interested in hospice at this time. The patient has a son who is in [facility] for 12 days. He would like to prolong his status until the sons return. His initial thinking is something like a blood transfusion this weekend, another in a week and then activate hospice at that time. He denies any pain, or dyspnea. [facility] Medical History Androgen deprivation therapy History of radiation therapy Frequency of micturition Urinary urgency Nocturia Lower urinary tract symptoms Hx of closed dislocation of shoulder Hx of prostatic malignancy Hx of renal calculi Surgical History Hx of bilateral inguinal hernia repair Hx of prostate biopsy Hx of circumcision Hx of prostatectomy Family History Mother Cancer Sister Cancer Social History marital status: household members: spouse Smoking Status: Never smoker alcohol intake: former caffeine: Yes Type(s) of exercise: bicycling frequency: 1-2 times per week duration: 45-60 minutes/day Meds Home Medications and Allergies Home Medications Medication Instructions Recorded Confirmed Type bisacodyl 10 mg rectal suppository 10 mg ME DAILY 09/09/23 09/13/23 History cholecalciferol (vitamin D3) 25 25 mcg PO DAILY 09/09/23 09/13/23 History mcg (1,000 unit) tablet (Vitamin D3) gabapentin 300 mg capsule 300 mg PO 2XD 09/09/23 09/13/23 History multivitamin with minerals 1 cap PO DAILY 09/09/23 09/13/23 History oxycodone 5 mg tablet 10 mg PO Q8H PRN severe pain 09/09/23 09/13/23 History rosuvastatin 5 mg tablet 5 mg PO BEDTIME 09/09/23 09/13/23 History sennosides 8.6 mg tablet (senna) 17.2 mg PO BID 09/09/23 09/13/23 History cefdinir 300 mg capsule 300 mg PO BID 7 days #14 caps 09/10/23 09/13/23 Rx dronabinol 2.5 mg capsule 2.5 mg PO BID 15 days #30 caps 09/10/23 09/13/23 Rx Allergies Allergy/AdvReac Type Severity Reaction Status Date / Time No Known Drug Allergies Allergy Verified 04/11/21 15:09 Review of Systems Review of Systems Narrative: All else reviewed and otherwise unremarkable except as noted in the history and physical. Exam Vital Signs (past 8 hours): - 09/13/23 00:20 09/13/23 00:20 09/13/23 00:30 Temperature Pulse Rate 72 Respiratory Rate 12 Blood Pressure 121/66 117/64 Pulse Oximetry 93 Oxygen Delivery Method Oxygen Flow Rate 09/13/23 00:30 09/13/23 00:40 09/13/23 00:40 Temperature Pulse Rate 72 71 Respiratory Rate 14 11 L Blood Pressure 118/62 Pulse Oximetry 95 95 Oxygen Delivery Method Oxygen Flow Rate 09/13/23 00:50 09/13/23 00:50 09/13/23 01:05 Temperature 99.4 F Pulse Rate 72 Respiratory Rate 13 Blood Pressure 117/62 Pulse Oximetry 94 Oxygen Delivery Method Oxygen Flow Rate 09/13/23 01:33 09/13/23 01:41 09/13/23 01:44 Temperature 100.8 F H 100.8 F H Pulse Rate 75 Respiratory Rate 16 Blood Pressure 131/74 Pulse Oximetry 95 Oxygen Delivery Method Room Air Oxygen Flow Rate 0 09/13/23 02:11 09/13/23 07:03 Temperature 99.2 F 97.9 F Pulse Rate 70 Respiratory Rate 16 Blood Pressure 109/69 Pulse Oximetry 95 Oxygen Delivery Method Oxygen Flow Rate Oxygen Delivery Method Room Air Oxygen Flow Rate 0 Narrative Exam Narrative: NAD, alert and oriented, fluent speech, calm. Pale. Normocephalic skull, EOMI, anicteric sclera, symmetric pupils. Oropharynx unremarkable, no droop. Neck supple, midline trachea, no adenopathy. Lungs clear, normal rate and effort. Heart regular, no murmur gallop or rub. Abdomen is soft, non distended and non tender. Extremities are free of edema. Skin is free of rash or lesions. Joints are not swollen or deformed. Judgment appears to be normal. Objective Labs 09/13/23 06:18 09/13/23 06:18 Labs: Laboratory Results - last 24 hr 09/12/23 09/12/23 09/12/23 19:45 20:02 20:33 WBC 2.6 L RBC 2.05 L Hgb 6.6 L* Hct 19.2 L* MCV 93.6 D MCH 32.1 MCHC 34.3 RDW 16.1 H Plt Count 20 L* Neut % (Auto) 68.9 Lymph % (Auto) 20.3 L [place] % (Auto) 8.5 Eos % (Auto) 1.6 L Baso % (Auto) 0.7 Neut # (Auto) 1800 Lymph # (Auto) 500 L [place] # (Auto) 200 Eos # (Auto) 0 Baso # (Auto) 0 Platelet Estimate RBC Morphology See below Anisocytosis 1+ H Schistocytes Percent Retic 2.5 PT 14.8 H INR 1.3 APTT 33 Sodium 130 L Potassium 4.5 Chloride 105 Carbon Dioxide 22 BUN 21 H Creatinine 0.94 Estimated GFR > 60 BUN/Creatinine Ratio 22.3 H Glucose 98 Lactate 1.2 Calcium 7.8 L Total Bilirubin 1.0 AST 365 H ALT 15 Alkaline Phosphatase 96 Total Creatine Kinase 365 H Troponin I 0.040 H Total Protein 5.5 L Albumin 3.0 L Globulin 2.5 Albumin/Globulin Ratio 1.2 Procalcitonin 0.475 Urine Color Yellow Urine Appearance Clear Urine pH 8.5 H Ur Specific [place] 1.010 Urine Protein Trace H Urine Glucose (UA) Negative Urine Ketones Negative Urine Occult Blood 1+ H Urine Nitrate Negative Urine Bilirubin Negative Urine Urobilinogen 0.2 Ur Leukocyte Esterase Negative Urine RBC 0-1/hpf D Urine WBC None seen Ur Squamous Epith Cells 0-1 /hpf Urine Bacteria None seen Ur Culture Indicated? Cult not indicated Vol Urine Centrifuged 10ml (spun) Chlamy pneumoniae PCR Not detected Adenovirus (PCR) Not detected B.parapertussis DNA PCR Not detected Coronavirus OC43 (PCR) Not detected Coronavirus HKU1 (PCR) Not detected Coronavirus 229E (PCR) Not detected SARS-CoV-2 (PCR) Not detected Coronavirus NL63 (PCR) Not detected Human Metapneumovir PCR Not detected Influenza Type A (PCR) Not detected Influenza Type B (PCR) Not detected M. pneumoniae (PCR) Not detected Parainfluenza 1 (PCR) Not detected Parainfluenza 2 (PCR) Not detected Parainfluenza 3 (PCR) Not detected Parainfluenza 4 (PCR) Not detected RSV (PCR) Not detected Entero/Rhino (PCR) Not detected Blood Type Antibody Screen Crossmatch 09/12/23 09/13/23 21:14 06:18 WBC 2.4 L RBC 2.20 L Hgb 6.8 L* Hct 19.6 L* MCV 88.7 D MCH 30.9 MCHC 34.8 RDW 16.9 H Plt Count 18 L* Neut % (Auto) 72.2 Lymph % (Auto) 17.8 L [place] % (Auto) 7.7 Eos % (Auto) 1.7 L Baso % (Auto) 0.6 Neut # (Auto) 1700 Lymph # (Auto) 400 L [place] # (Auto) 200 Eos # (Auto) 0 Baso # (Auto) 0 Platelet Estimate Decreased on smear RBC Morphology See below Anisocytosis 1+ H Schistocytes 1+ H Percent Retic PT INR APTT Sodium 132 L Potassium 4.1 Chloride 108 H Carbon Dioxide 23 BUN 18 Creatinine 0.87 Estimated GFR > 60 BUN/Creatinine Ratio 20.7 Glucose 93 Lactate Calcium 7.5 L Total Bilirubin AST ALT Alkaline Phosphatase Total Creatine Kinase Troponin I Total Protein Albumin Globulin Albumin/Globulin Ratio Procalcitonin Urine Color Urine Appearance Urine pH Ur Specific [place] Urine Protein Urine Glucose (UA) Urine Ketones Urine Occult Blood Urine Nitrate Urine Bilirubin Urine Urobilinogen Ur Leukocyte Esterase Urine RBC Urine WBC Ur Squamous Epith Cells Urine Bacteria Ur Culture Indicated? Vol Urine Centrifuged Chlamy pneumoniae PCR Adenovirus (PCR) B.parapertussis DNA PCR Coronavirus OC43 (PCR) Coronavirus HKU1 (PCR) Coronavirus 229E (PCR) SARS-CoV-2 (PCR) Coronavirus NL63 (PCR) Human Metapneumovir PCR Influenza Type A (PCR) Influenza Type B (PCR) M. pneumoniae (PCR) Parainfluenza 1 (PCR) Parainfluenza 2 (PCR) Parainfluenza 3 (PCR) Parainfluenza 4 (PCR) RSV (PCR) Entero/Rhino (PCR) Blood Type A Positive Antibody Screen Negative Crossmatch See Detail Assessment & Plan Assessment & Plan narrative: Metastatic Prostate Carcinoma, present on admission and active. - currently on no therapies, pain management, indwelling catheter UTI, present on admission and active. - septic on prior admission - BCs still w/o growth, UC grew sensitive Citrobacter - spiked fever today, BCs re-drawn in ED - Rocephin Pancytopenia, present on admission and active. - from recent palliative radiation therapy - PRBC x 1 - no need for Plt transfusion as long as count > 10,000 Generalized Weakness, Poor Appetite, present on admission and active. - supportive care, Dronabinole PLAN: - another blood transfusion today - continue antibiotics and follow cultures. - probable discharge home Friday - outpatient blood transfusion in 5-7 days - open hospice after. DVT prophylaxis - SCDs Time-Based Coding :: 45spent with patient and on the chart (including review of chart, obtaining history, exam, reviewing outside data, placing orders, documenting exam and treatment plan, and counseling patient) on 09/13/2023. Quality MIPS - Admit I confirm the patient?s Advance Care Plan is present, Code status is documented, Surrogate decision maker is in patient?s record [If Yes, STOP here]: Yes MIPS - Meds 'Current medications' to include all prescriptions, [id number] products, herbals, cannabis/cannabidiol products, and vitamin/mineral/dietary (nutritional) supplements. I have utilized all available resources to obtain, update, or review the patient?s current medications. [If Yes, STOP here]: Yes
[2023-09-13] MEDS: droNABinol 2.5 MG CAPSULE PO ×2 (10:46→20:34)
[2023-09-13] MEDS: SENNOSIDES 8.6 MG TABLET 17.2 MG PO ×2 (10:46→20:34)
--- NOTE | 2023-09-13 12:36 | CM.DANOTE ---
Initial DCP Assessment Visit Note: Re-admit Reviewed EMR and team rounds for status updates. Met with pt, spouse, and pt's son to introduce self and role. Pt was found to be resting quietly in bed, presenting as tired but more mentally clear and intact as opposed to his last admission. Pt had been living independently in his own home w/spouse on [address], however has declined dramatically and is now dependent on all care needs, ADL's except for eating. His spouse will be transporting him back home once he's medically cleared for d/c, likely tomorrow (Friday). Payor: Medicare PCP: Dr. Wells Pt is a 78 year-old M who was recently admitted from 09/04-09/10/23 for same issues. Pt had been previously admitted for a UTI, low platelets, severe anemia, was treated with IV ABO's, received 2-units of blood, and was discharged with oral antibiotics. He initially did well, but then rapidly became very weak and declined in overall functional status, he was airlifted from [place] last evening. In the ED, he was found to to have a fever of 102 degrees. He was admitted to the floor for further evaluation and tx, antibiotics were initially held, but may be initiated prior to d/c after pending testing is completed. Cultures are pending. In meeting with pt/family, they made the decision to initiate a referral to [facility]. Faxed clinicals and referral. DCP will continue to follow and assist with hospice coordination and transition back home. Will monitor for any further evolving d/c needs prior to his departure. 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 Discharge Planning/Care Management Advanced directive, confirm from FAMILY Start: 09/13/23 01:25 Freq: Q24H Status: Active Protocol: Document 09/13/23 01:34 AT (Rec: 09/13/23 01:34 AT [id number]) Advance Directive, confirm on record Time 01:34 Person contacted self Copy received No CM Discharge Assessment Start: 09/13/23 12:14 Freq: Status: Active Protocol: Document 09/13/23 12:30 DPL (Rec: 09/13/23 12:36 DPL [id number]) Discharge Planning Assessment Assigned Novelty Chain Maker RODRIGO Reis Advance Directives? Yes Advance Directives on File No History Provided By Patient,Family Member, Significant Other,Medical Record Has Patient been admitted in last 30 Yes days? Comment Pt was just admitted for the same thing from 09/04-09/10/23 Prior Living Arrangements House Household Members spouse Type of transporation used prior to Relies on Others admit Independent with ADL's No: Pt is now dependent on care needs and IADL's, is declining. Is patient alert and oriented? Yes Needs Assistance With Meal Prep,Toileting,Managing Medications,Home Chores / Shopping Caregiver for Another No Comment [facility] Oncology at [facility] Comment u/k Comment Per family's request, sent a referral and [facility]s to [facility] Barriers to Discharge No Discharge Plan Home Transportation Arrangement Spouse Referrals Initiated Other Additional Comment Hospice Whiteboard Updated in Patient Room with Yes name and ext. # of Novelty Chain Maker Review Status In Process Please Provide Date Initial DC 09/13/23 Assessment Was Performed
[2023-09-13 14:03] LABS: Reticulocyte Count, Percent 2.2 % (0.9-2.6)
[2023-09-13 14:50] LABS: Add Manual Diff / Slide Review NO; Basophils Absolute Auto 0 /uL (0-100); Basophils Percent Auto 1.2 % (0-2); Eosinophils Absolute Auto 0 /uL (0-450); Hematocrit 22.4 % (41-53); Hemoglobin 7.8 g/dL (13.5-17.5); Lymphocytes Absolute Auto 500 /uL (1100-4500); Mean Corpuscular HGB Conc 34.8 % (30-36); Mean Corpuscular Hemoglobin 31.2 PG (26-34); Mean Corpuscular Volume 89.8 fL (80-100); Monocytes Absolute Auto 200 /uL (0-900); Monocytes Percent Auto 7.4 % (3-14); Neutrophils Absolute Auto 2000 /uL (1500-7000); Neutrophils Percent Auto 72.4 % (50-75); Red Cell Distribution Width 17.9 % (11.6-14.8); White Blood Cell Count 2.8 X10^3/uL (4.5-11.0)
[2023-09-13 15:02] LABS: Platelet Count 16 X10^3/uL (150-400)
[2023-09-13 15:03] LABS: RBC Morphology Normal Morphology
[2023-09-13 15:05] LABS: Platelet Estimate Decreased on smear
[2023-09-13 15:14] LABS: Folate 13.4 ng/mL (2.76-20.0); Vitamin B12 642 pg/mL (239-931)
[2023-09-13] MEDS: polyethylene glycoL 3350 17 GM POWD.PACK PO (16:04)
--- NOTE | 2023-09-13 17:33 | PC.NURSE ---
prbc started, temp 101.9 dr. lewis aware and cleared to transfuse blood
[2023-09-13] MEDS: OXYCODONE IR 10 MG TABLET PO (18:34)
[2023-09-13] MEDS: cefTRIAXone 2,000 MG in SODIUM CHLORIDE 0.9% 100 ML 200 MG IV (19:40)
[2023-09-14] VITALS (8 sets, daily range): BP systolic 103–123; BP diastolic 68–76; PULSE 74–89; RESP 14–16; TEMP 37.1–37.5; O2SAT 94–98
[2023-09-14 05:34] LABS: Add Manual Diff / Slide Review NO; Basophils Absolute Auto 0 /uL (0-100); Basophils Percent Auto 0.5 % (0-2); Eosinophils Absolute Auto 0 /uL (0-450); Eosinophils Percent Auto 1.1 % (2-4); Hematocrit 22.9 % (41-53); Hemoglobin 7.9 g/dL (13.5-17.5); Lymphocytes Absolute Auto 500 /uL (1100-4500); Lymphocytes Percent Auto 20.6 % (25-40); Mean Corpuscular HGB Conc 34.7 % (30-36); Mean Corpuscular Hemoglobin 31.3 PG (26-34); Mean Corpuscular Volume 90.1 fL (80-100); Monocytes Absolute Auto 200 /uL (0-900); Monocytes Percent Auto 6.9 % (3-14); Neutrophils Absolute Auto 1900 /uL (1500-7000); Neutrophils Percent Auto 70.9 % (50-75); Red Blood Cell Count 2.54 X10^6/uL (4.5-5.9); Red Cell Distribution Width 16.9 % (11.6-14.8); White Blood Cell Count 2.6 X10^3/uL (4.5-11.0)
[2023-09-14 05:36] LABS: BUN Creatinine Ratio 21.7 (6-22); Blood Urea Nitrogen 18 mg/dL (9-20); Calcium 7.4 mg/dL (8.4-10.2); Carbon Dioxide 24 mmol/L (22-32); Chloride 107 mmol/L (98-107); Estimated Glomerular Filt Rate > 60 mL/min (>60); Glucose 107 mg/dL (80-110); HEMOLYSIS < 15 (0-50); Potassium 4.2 mmol/L (3.4-5.1); Sodium 131 mmol/L (137-145)
[2023-09-14 05:37] LABS: Platelet Count 13 X10^3/uL (150-400)
[2023-09-14 06:06] LABS: Anisocytosis 1+; Platelet Estimate Decreased on smear; Schistocytes 1+
[2023-09-14] MEDS: OXYCODONE IR 10 MG TABLET PO ×2 (07:32→18:13)
[2023-09-14] MEDS: polyethylene glycoL 3350 17 GM POWD.PACK PO (10:04)
[2023-09-14] MEDS: droNABinol 2.5 MG CAPSULE PO (10:04)
[2023-09-14] MEDS: SENNOSIDES 8.6 MG TABLET 17.2 MG PO (10:04)
[2023-09-14] MEDS: GABAPENTIN 300 MG CAPSULE PO (10:05)
--- NOTE | 2023-09-14 11:24 | CM.DPC ---
DCP Cont. Reviewed EMR and team rounds for status updates. Pt is being medically cleared for home d/c today. Family will be transporting him home to [place] later this afternoon after he receives his blood transfusion and platelets. [facility] to check on the status of his referral, they had not yet spoken with family for the info visit. Per Dr. Bills, he would like pt to return to the infusion center in 5-days for a blood transfusion and platelets, palliative in focus, in order for his son to return from [facility] at the end of next week to say their goodbyes. BARKEEPER explained this request to [facility], they will discuss this with the [facility] Advertising Sales Representative in order to clarify if they will pay for this. This BARKEEPER will f/u again tomorrow with them to confirm.
--- NOTE | 2023-09-14 11:25 | PC.NURSE ---
Addendum entered by Jenny James R.N. 09/14/23 18:16: Patient tolerated his 1unit of Platelets and his 1 unit of PRBCS was started around 1612, he is tolerating this well and will be dishcarging home later tonight after this is done. Patient plans on catching the [address] ferry to [place] Original Note: Patient is visiting with some of his friends now and his is also here. He has strawberry colored urine in his monae bag, the DrAugie is aware of this. He has orders to transfer 1u of PRBCs and 1u of platelets, which are coming from [place]. So this will be done this afternoon. Patient given 10mg of oxycodone for l.arm discomfort and this was helpful to him.
--- NOTE | 2023-09-14 17:57 | PM.DS.1 ---
History of Present Illness History of Present Illness Chief complaint: Sepsis concerns Narrative: From night doctor: 78 years old male with a past medical history of metastatic prostate carcinoma and recent admission with UTI and sepsis after recent placement of indwelling catheter for urinary obstruction, with pancytopenia that required PRBC and Plt transfusion. Discharged home 2 days ago on Cefdinir and UC in the meantime grew sensitive Citrobacter. He felt better at home until he spiked fever today which brought him back. He feels little lightheaded when stoods up, denies chills, abdominal pain, chest pain, shortness of breath. He deferred some of the questions to his who will be visiting tomorrow. In addition, worsening counts in comparison to CBC from 2 days ago, qualifies for PRBC transfusion. Placed in observation for IV abx, PRBC transfusion S: Met with patient, his , and a close friend who has a ui developer, as well as his son. The patient was quite clear that he has no other options and is interested in hospice at this time. The patient has a son who is in [facility] for 12 days. He would like to prolong his status until the sons return. His initial thinking is something like a blood transfusion this weekend, another in a week and then activate hospice at that time. He denies any pain, or dyspnea. Discharge Providers Provider Date of admission: 09/12/23 23:45 Discharge Date: 09/14/23 Primary care physician: Shaheen Wells MD Discharge provider: Eddi Bills MD Summary Hospital Course Discharge Diagnosis: Metastatic Prostate Carcinoma, present on admission and active. - currently on no therapies, pain management, indwelling catheter UTI, present on admission and active. Pancytopenia, present on admission and active. Generalized Weakness, Poor Appetite, present on admission and active. - supportive care, [place] Hospital Course: This patient re-presented with fevers and weakness. He was metastatic prostate cancer. He was supported with blood products and platelets while here. He was treated with antibiotics in his cultures revealed Citrobacter which was sensitive to Cipro. I met with the patient, and a friend who is ui developer. There was no clinical evidence of hemolysis. The patient is not a candidate for further treatment modalities for his metastatic prostate cancer with bone marrow failure. The patient made it quite clear that he wanted to proceed with hospice. One of his 2 sons is present for our discussions, and orthopedic surgeon from the [facility]. The other is on a honeymoon in [facility] and back in 12 days. The patient does want to prolong life to be able to have his other son with him at the point that he no longer uses blood products. We are able to discuss opening with hospice and the use of blood products in approximately 5 days to support the patient in a palliative manner until his other son is back. The patient and his live on [address]. 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 Status at Discharge Cognitive/behavioral status at discharge: oriented Functional status at discharge: uses cane/walker Overall status at discharge: patient is not back to baseline Time Spent with Patient Time spent: Greater than 30 minutes Exam Vital Signs (past 8 hours): - 09/14/23 12:00 09/14/23 13:37 09/14/23 13:57 Temperature 99.4 F 99.4 F 99.2 F Pulse Rate 74 76 89 Respiratory Rate 16 16 16 Blood Pressure 123/71 118/76 111/68 Pulse Oximetry 98 09/14/23 15:34 09/14/23 16:04 09/14/23 16:27 Temperature 99.5 F 99.5 F 99.3 F Pulse Rate 87 87 82 Respiratory Rate 16 16 14 Blood Pressure 113/73 113/73 103/72 Pulse Oximetry Oxygen Delivery Method Room Air Oxygen Flow Rate 0 Narrative Exam Narrative: NAD, alert and oriented. Fluent speech. Lungs are clear, normal rate and effort. Heart is regular, no murmur gallop or rub. Abdomen is soft, non distended. Extremities are free of edema. Objective Labs 09/14/23 05:05 09/14/23 05:05 Labs: Laboratory Results - last 24 hr 09/12/23 09/14/23 21:14 05:05 WBC 2.6 L RBC 2.54 L Hgb 7.9 L Hct 22.9 L MCV 90.1 MCH 31.3 MCHC 34.7 RDW 16.9 H Plt Count 13 L* Neut % (Auto) 70.9 Lymph % (Auto) 20.6 L [place]cal[place] % (Auto) 6.9 Eos % (Auto) 1.1 L Baso % (Auto) 0.5 Neut # (Auto) 1900 Lymph # (Auto) 500 L [place] # (Auto) 200 Eos # (Auto) 0 Baso # (Auto) 0 Platelet Estimate Decreased on smear RBC Morphology See below Anisocytosis 1+ H Schistocytes 1+ H Sodium 131 L Potassium 4.2 Chloride 107 Carbon Dioxide 24 BUN 18 Creatinine 0.83 Estimated GFR > 60 BUN/Creatinine Ratio 21.7 Glucose 107 Calcium 7.4 L Blood Type A Positive Antibody Screen Negative Crossmatch See Detail [facility] Medical History Androgen deprivation therapy History of radiation therapy Frequency of micturition Urinary urgency Nocturia Lower urinary tract symptoms Hx of closed dislocation of shoulder Hx of prostatic malignancy Hx of renal calculi Surgical History Hx of bilateral inguinal hernia repair Hx of prostate biopsy Hx of circumcision Hx of prostatectomy Family History Mother Cancer Sister Cancer Social History marital status: household members: spouse Smoking Status: Never smoker alcohol intake: former caffeine: Yes Type(s) of exercise: bicycling frequency: 1-2 times per week duration: 45-60 minutes/day Discharge Assessment & Plan Assessment and Plan Assessment: Metastatic Prostate Carcinoma, present on admission and active. - currently on no therapies, pain management, indwelling catheter UTI, present on admission and active. Pancytopenia, present on admission and active. Generalized Weakness, Poor Appetite, present on admission and active. - supportive care, [place] Plan of Treatment: Discharge home, we will Hopen with hospice in the next 1-2 days. The plan is to provide 1 unit of packed cells and if possible 1 unit of platelets in approximately 5-6 days from the time of discharge for palliation of his persistent and severe pancytopenia. After this infusion, he will likely decline further blood products. His goal is to see his 2nd son who returns from [facility] in approximately 12 days from the time of discharge. Discharge Plan Discharge Plan Patient Disposition: Hospice - Home Provider Discharge Comment: Stable for discharge home with oral antibiotics, initiation of hospice, and palliative blood transfusion within the next 5-7 days. Discharge orders & Medications Prescriptions: New ciprofloxacin HCl [Cipro] 500 mg tablet 500 mg PO BID Qty: 10 0RF Continued gabapentin 300 mg capsule 300 mg PO 2XD cholecalciferol (vitamin D3) [Vitamin D3] 25 mcg (1,000 unit) Tablet 25 mcg PO DAILY multivitamin with minerals Capsule 1 cap PO DAILY oxycodone 5 mg tablet 10 mg PO Q8H PRN (Reason: severe pain) rosuvastatin 5 mg tablet 5 mg PO BEDTIME sennosides [senna] 8.6 mg Tablet 17.2 mg PO BID bisacodyl 10 mg Suppository 10 mg ME DAILY dronabinol 2.5 mg capsule 2.5 mg PO BID 15 Days Qty: 30 0RF Rx Instructions: administer before lunch and evening meal/dinner Discontinued cefdinir 300 mg capsule 300 mg PO BID 7 Days Qty: 14 0RF Follow up/Referrals: Shaheen Wells MD [Primary Care Provider] - Discharge Health Status Multidrug resistant organism: No MDRO Diet/Activity/Treatments Diet: Diet as Tolerated Skin/Wound/Dressing Care Report to your healthcare provider any signs of infection, such as:: chills, fever Visit Report/Discharge Packet Instructions: Anemia, DI for Urinary Tract Infection (UTI), Ciprofloxacin Stand Alone Forms: Stroke Signs & Symptoms Discharge Data Primary Care Provider: Shaheen Wells Quality [facility] [place] The patient has a history of heart transplant or Left Ventricular Assist Device (LVAD). If yes, STOP here.: No The patient has current or prior documentation of left ventricular ejection fraction (LVEF) less than or equal to 40%, or moderate or severely depressed left ventricular systolic function.: No
[2023-09-15 05:36] LABS: Haptoglobin 67 mg/dL (34-355)
--- NOTE | 2023-09-15 11:25 | CM.DPC ---
Addendum entered by RODRIGO Gallegos 09/15/23 12:39: ADD: SW confirmed with Ann at [facility] that they can provide blood transfusion but not platelets and faxed pt's blood bank information to [facility] to review per their request. BF Original Note: DCP Ongoing Hospice Planning SW spoke to Ann at Hospice who confirms she completed Hospice Info Visit with spouse and aware that the recommendation/request is for pt to have a one time transfusion/platelets for comfort and end of life goals to live until his son can [place]. Ann states they have the pt on the schedule to open him for SOC tomorrow 09/16/23 at 1300 and their medical provider is reviewing to confirm they can provide the transfusion for pt while on Hospice. completed discharge summary with recommendation of one unit blood with platelets and SW faxed to [facility] to review. Plan: SW to follow closely for [facility] review to confirm they will provide the one time transfusion while pt on Hospice. RODRIGO Gallegos
== END 2023-09-14 20:25 | disposition hospice, home (50) | DRG 698 ==
LOC: ED 20:09 → AC 09-13 00:40
PROVIDERS: Hospitalist; Admitting Provider Internal Medicine; Emergency Provider Emergency Medicine; PCP Family Medicine; Referring Provider Emergency Medicine; Visit Provider Internal Medicine
DX: T83.511A Infection and inflammatory reaction due to indwelling urethral catheter, initial encounter (principal); D61.811 Other drug-induced pancytopenia; C79.9 Secondary malignant neoplasm of unspecified site; N39.0 Urinary tract infection, site not specified; C61 Malignant neoplasm of prostate; T50.995A Adverse effect of other drugs, medicaments and biological substances, initial encounter
CPT/HCPCS: 36415; 36430; 36591; 71045; 71260; 80048; 80053; 81001; 82550; 82607; 82746; 83010; 83605; 84145; 84484; 85025; 85045; 85610; 85730; 86850; 86900; 86901; 86945; 87040; 87633; 93005; 96365; 99285; 99291; G0378; P9016; J0696; P9035; Q9967